=== PATIENT | male | born 1950 | race Caucasian/White ===

== ENCOUNTER → 2023-11-22 13:57 | Outpatient (REF) | payer MEDICARE, OTHER, SELFPAY ==
[2023-11-22 15:32] LABS: % Eosinophils 5.5 % (0-6); % Immature Granulocytes 1.3 % (0-0.5); % Lymphocytes 24.1 % (20.5-51.1); % Monocytes 12.8 % (1.7-9.3); % Neutrophils 55.3 % (42.2-75.2); Absolute Eosinophils 0.2 10^3/uL (0-0.7); Absolute Immature Granulocytes 0.1 10^3/uL (0-0.05); Absolute Monocytes 0.5 10^3/uL (0.1-0.6); Absolute Neutrophils 2.2 10^3/uL (1.4-6.5); Hematocrit 32.3 % (39.0-52.0); Hemoglobin 10.9 g/dL (13.0-18.0); Mean Corp Hgb Conc. 33.7 g/dL (33.0-37.0); Mean Corpuscular Hgb 30.2 pg (27.0-31.0); Mean Corpuscular Volume 89.5 fL (80.0-94.0); Mean Platelet Volume 11.5 fL (7.4-10.4); Nucleated Red Blood Cells % 0 % (-); Platelet Count 116 10^3/uL (130-400); Red Blood Cell Count 3.61 10^6/uL (4.70-6.10); Red Cell Dist. Width 17.6 % (11.5-14.5)
[2023-11-22 15:43] LABS: ALT (SGPT) 41 U/L (0-50); AST (SGOT) 39 U/L (17-59); Albumin 3.5 g/dl (3.5-5.0); Alkaline Phosphatase 96 U/L (38-126); Blood Urea Nitrogen 23 mg/dl (9-20); Calcium 8.6 mg/dl (8.4-10.2); Carbon Dioxide 25 mmol/L (22-30); Chloride 99 mmol/L (98-107); Glucose 117 mg/dl (70-99); Potassium 4.2 mmol/L (3.5-5.1); Sodium 133 mmol/L (135-145); Total Bilirubin 0.9 mg/dl (0.2-1.3); Total Protein 6.4 g/dl (6.3-8.2); eGFR > 60.00
== END ==
LOC: REG 13:57
PROVIDERS: ATTENDING PHYSICIAN Internal Medicine Hematology & Oncology
DX: C90.00 Multiple myeloma not having achieved remission (principal); D80.1 Nonfamilial hypogammaglobulinemia; Z51.81 Encounter for therapeutic drug level monitoring; R53.1 Weakness; C90.11 Plasma cell leukemia in remission
CPT/HCPCS: 36415; 71046; 80053; 85025

== ENCOUNTER → 2023-12-13 13:59 | Outpatient (REF) | payer MEDICARE, OTHER, SELFPAY | LOC: HWRAD 13:59 | PROVIDERS: ATTENDING PHYSICIAN Nurse Practitioner Gerontology; FAMILY PHYSICIAN Family Medicine; OTHER PHYSICIAN Internal Medicine Hematology & Oncology | DX: C90.00 Multiple myeloma not having achieved remission (principal) | CPT/HCPCS: 71250 ==

== ENCOUNTER → 2023-12-17 09:10 | Outpatient (REF) | payer MEDICARE, OTHER, SELFPAY ==
[2023-12-17 09:46] LABS: % Basophils 1.6 % (0-2); % Eosinophils 9.5 % (0-6); % Immature Granulocytes 0.8 % (0-0.5); % Lymphocytes 29.6 % (20.5-51.1); % Monocytes 10.3 % (1.7-9.3); % Neutrophils 48.2 % (42.2-75.2); Absolute Eosinophils 0.2 10^3/uL (0-0.7); Absolute Lymphocytes 0.8 10^3/uL (1.2-3.4); Absolute Monocytes 0.3 10^3/uL (0.1-0.6); Absolute Neutrophils 1.2 10^3/uL (1.4-6.5); Hematocrit 30.5 % (39.0-52.0); Hemoglobin 9.7 g/dL (13.0-18.0); Mean Corp Hgb Conc. 31.8 g/dL (33.0-37.0); Mean Corpuscular Hgb 28.4 pg (27.0-31.0); Mean Corpuscular Volume 89.2 fL (80.0-94.0); Platelet Count 77 10^3/uL (130-400); Red Blood Cell Count 3.42 10^6/uL (4.70-6.10); White Blood Cell Count 2.5 10^3/uL (4.8-10.8)
[2023-12-17 10:47] LABS: ALT (SGPT) 43 U/L (0-50); AST (SGOT) 31 U/L (17-59); Alkaline Phosphatase 128 U/L (38-126); Blood Urea Nitrogen 13 mg/dl (9-20); Calcium 8.6 mg/dl (8.4-10.2); Carbon Dioxide 29 mmol/L (22-30); Chloride 102 mmol/L (98-107); Glucose 129 mg/dl (70-99); Potassium 4.3 mmol/L (3.5-5.1); Sodium 134 mmol/L (135-145); Total Bilirubin 1.3 mg/dl (0.2-1.3); Total Protein 5.3 g/dl (6.3-8.2); eGFR > 60.00
[2023-12-19 03:38] LABS: Beta-2-Microglobulin 4.2 mg/L (<=3.0)
[2023-12-20 13:36] LABS: Albumin 2.85 g/dL (3.75-5.01); Alpha 1 Globulin 0.47 g/dL (0.19-0.46); Alpha 2 Globulin 0.97 g/dL (0.48-1.05); Free Kappa Light Chains,Quant 244.75 mg/L (3.30-19.40); Free Lambda Light Chains,Quant 14.51 mg/L (5.71-26.30); IgA 6 mg/dL (68-408); IgG 422 mg/dL (768-1632); IgM 236 mg/dL (35-263); Immunofixation Electrophoresis IFE Done; Kappa/Lambda Fr Light Ratio 16.87 (0.26-1.65); Total Protein-Electrophoresis 5.4 g/dL (6.3-8.2)
== END ==
LOC: OIDL 09:10
PROVIDERS: ATTENDING PHYSICIAN Internal Medicine Hematology & Oncology
DX: C90.00 Multiple myeloma not having achieved remission (principal)
CPT/HCPCS: 36415; 80053; 82232; 82784; 83521; 84155; 84165; 85025; 86334

== ENCOUNTER → 2023-12-26 07:48 | Outpatient (REF) | payer MEDICARE, OTHER, SELFPAY ==
[2023-12-26 08:53] LABS: % Basophils 0.2 % (0-2); % Immature Granulocytes 0.4 % (0-0.5); % Lymphocytes 18.3 % (20.5-51.1); % Monocytes 11.3 % (1.7-9.3); % Neutrophils 69.8 % (42.2-75.2); Absolute Lymphocytes 0.8 10^3/uL (1.2-3.4); Absolute Monocytes 0.5 10^3/uL (0.1-0.6); Absolute Neutrophils 3.2 10^3/uL (1.4-6.5); Hematocrit 29.3 % (39.0-52.0); Hemoglobin 9.5 g/dL (13.0-18.0); Mean Corp Hgb Conc. 32.4 g/dL (33.0-37.0); Mean Corpuscular Hgb 29.7 pg (27.0-31.0); Mean Corpuscular Volume 91.6 fL (80.0-94.0); Mean Platelet Volume 11.1 fL (7.4-10.4); Platelet Count 85 10^3/uL (130-400); Red Cell Dist. Width 24.4 % (11.5-14.5); White Blood Cell Count 4.6 10^3/uL (4.8-10.8)
[2023-12-26 09:31] LABS: ALT (SGPT) 44 U/L (0-50); AST (SGOT) 23 U/L (17-59); Albumin 3.6 g/dl (3.5-5.0); Alkaline Phosphatase 99 U/L (38-126); Blood Urea Nitrogen 18 mg/dl (9-20); Calcium 8.5 mg/dl (8.4-10.2); Carbon Dioxide 23 mmol/L (22-30); Chloride 101 mmol/L (98-107); Glucose 108 mg/dl (70-99); Potassium 4.8 mmol/L (3.5-5.1); Sodium 133 mmol/L (135-145); Total Bilirubin 0.6 mg/dl (0.2-1.3); Total Protein 5.9 g/dl (6.3-8.2); eGFR > 60.00
[2023-12-29 13:26] LABS: Albumin 3.35 g/dL (3.75-5.01); Alpha 1 Globulin 0.36 g/dL (0.19-0.46); Alpha 2 Globulin 0.87 g/dL (0.48-1.05); Free Kappa Light Chains,Quant 250.14 mg/L (3.30-19.40); Free Lambda Light Chains,Quant 4.72 mg/L (5.71-26.30); IgA 7 mg/dL (68-408); IgG 474 mg/dL (768-1632); IgM 285 mg/dL (35-263); Immunofixation Electrophoresis IFE Done; Total Protein-Electrophoresis 5.7 g/dL (6.3-8.2)
== END ==
LOC: OIDL 07:48
PROVIDERS: ATTENDING PHYSICIAN Internal Medicine Hematology & Oncology; FAMILY PHYSICIAN Family Medicine
DX: C90.00 Multiple myeloma not having achieved remission (principal)
CPT/HCPCS: 36415; 80053; 82784; 83521; 84155; 84165; 85025; 86334

== ENCOUNTER → 2024-01-02 07:38 | Outpatient (REF) | payer MEDICARE, OTHER, SELFPAY ==
[2024-01-02 08:22] LABS: % Basophils 0.3 % (0-2); % Eosinophils 0.9 % (0-6); % Immature Granulocytes 1.2 % (0-0.5); % Lymphocytes 20.5 % (20.5-51.1); % Monocytes 10.2 % (1.7-9.3); % Neutrophils 66.9 % (42.2-75.2); Absolute Lymphocytes 0.7 10^3/uL (1.2-3.4); Absolute Monocytes 0.4 10^3/uL (0.1-0.6); Absolute Neutrophils 2.3 10^3/uL (1.4-6.5); Hematocrit 30.1 % (39.0-52.0); Mean Corp Hgb Conc. 33.2 g/dL (33.0-37.0); Mean Corpuscular Hgb 31.1 pg (27.0-31.0); Mean Corpuscular Volume 93.5 fL (80.0-94.0); Mean Platelet Volume 9.9 fL (7.4-10.4); Platelet Count 89 10^3/uL (130-400); Red Blood Cell Count 3.22 10^6/uL (4.70-6.10); Red Cell Dist. Width 27.7 % (11.5-14.5); White Blood Cell Count 3.4 10^3/uL (4.8-10.8)
[2024-01-02 09:05] LABS: ALT (SGPT) 37 U/L (0-50); AST (SGOT) 20 U/L (17-59); Albumin 3.5 g/dl (3.5-5.0); Alkaline Phosphatase 93 U/L (38-126); Blood Urea Nitrogen 18 mg/dl (9-20); Calcium 8.5 mg/dl (8.4-10.2); Carbon Dioxide 24 mmol/L (22-30); Chloride 98 mmol/L (98-107); Glucose 93 mg/dl (70-99); Potassium 4.6 mmol/L (3.5-5.1); Sodium 127 mmol/L (135-145); Total Bilirubin 0.6 mg/dl (0.2-1.3); Total Protein 5.7 g/dl (6.3-8.2); eGFR > 60.00
== END ==
LOC: OIDL 07:38
PROVIDERS: Internal Medicine Hematology & Oncology; ATTENDING PHYSICIAN Internal Medicine Hematology & Oncology
DX: C90.00 Multiple myeloma not having achieved remission (principal); D80.1 Nonfamilial hypogammaglobulinemia; Z51.81 Encounter for therapeutic drug level monitoring; I10 Essential (primary) hypertension
CPT/HCPCS: 36415; 80053; 85025

== ENCOUNTER → 2024-01-03 10:26 | Outpatient (REF) | payer MEDICARE, OTHER, SELFPAY ==
[2024-01-03 12:08] LABS: Free T3 2.76 pg/ml (2.77-5.27); Free T4 0.92 ng/dl (0.78-2.19)
[2024-01-03 12:22] LABS: TSH 8.61 uIU/ml (0.47-4.68)
[2024-01-04 09:56] LABS: Thyroid Peroxidase Ab (TPO) 2.6 IU/mL (0.0-9.0)
[2024-01-04 10:13] LABS: Thyroglobulin 6.4 ng/mL (1.3-31.8); Thyroglobulin Antibodies 1.1 IU/mL (0.0-4.0)
== END ==
LOC: REG 10:26
PROVIDERS: ATTENDING PHYSICIAN Nurse Practitioner Family; FAMILY PHYSICIAN Family Medicine
DX: E06.3 Autoimmune thyroiditis (principal)
CPT/HCPCS: 36415; 84432; 84439; 84443; 84481; 86376; 86800

== ENCOUNTER → 2024-01-09 07:40 | Outpatient (REF) | payer MEDICARE, OTHER, SELFPAY ==
[2024-01-09 08:36] LABS: % Basophils 0.4 % (0-2); % Eosinophils 1.1 % (0-6); % Immature Granulocytes 0.8 % (0-0.5); % Lymphocytes 28.9 % (20.5-51.1); % Monocytes 8.4 % (1.7-9.3); % Neutrophils 60.4 % (42.2-75.2); Absolute Lymphocytes 0.8 10^3/uL (1.2-3.4); Absolute Monocytes 0.2 10^3/uL (0.1-0.6); Absolute Neutrophils 1.6 10^3/uL (1.4-6.5); Hematocrit 29.4 % (39.0-52.0); Hemoglobin 9.7 g/dL (13.0-18.0); Mean Platelet Volume 9.9 fL (7.4-10.4); Platelet Count 67 10^3/uL (130-400); Red Blood Cell Count 3.03 10^6/uL (4.70-6.10); Red Cell Dist. Width 29.8 % (11.5-14.5); White Blood Cell Count 2.6 10^3/uL (4.8-10.8)
[2024-01-09 10:01] LABS: ALT (SGPT) 40 U/L (0-50); AST (SGOT) 25 U/L (17-59); Albumin 3.6 g/dl (3.5-5.0); Alkaline Phosphatase 83 U/L (38-126); Blood Urea Nitrogen 15 mg/dl (9-20); Carbon Dioxide 21 mmol/L (22-30); Chloride 100 mmol/L (98-107); Glucose 103 mg/dl (70-99); Potassium 4.7 mmol/L (3.5-5.1); Sodium 128 mmol/L (135-145); Total Bilirubin 0.5 mg/dl (0.2-1.3); Total Protein 5.6 g/dl (6.3-8.2); eGFR > 60.00
== END ==
LOC: OIDL 07:40
PROVIDERS: ATTENDING PHYSICIAN Internal Medicine Hematology & Oncology
DX: C90.00 Multiple myeloma not having achieved remission (principal); D80.1 Nonfamilial hypogammaglobulinemia; Z51.81 Encounter for therapeutic drug level monitoring; I10 Essential (primary) hypertension
CPT/HCPCS: 80053; 85025

== ENCOUNTER → 2024-01-15 07:46 | Outpatient (REF) | payer MEDICARE, OTHER, SELFPAY ==
[2024-01-15 08:08] LABS: % Basophils 1.3 % (0-2); % Eosinophils 2.6 % (0-6); % Immature Granulocytes 1.3 % (0-0.5); % Lymphocytes 38.5 % (20.5-51.1); % Monocytes 11.7 % (1.7-9.3); % Neutrophils 44.6 % (42.2-75.2); Absolute Eosinophils 0.1 10^3/uL (0-0.7); Absolute Lymphocytes 0.9 10^3/uL (1.2-3.4); Absolute Monocytes 0.3 10^3/uL (0.1-0.6); Hematocrit 30.9 % (39.0-52.0); Hemoglobin 10.4 g/dL (13.0-18.0); Mean Corp Hgb Conc. 33.7 g/dL (33.0-37.0); Mean Corpuscular Hgb 33.8 pg (27.0-31.0); Mean Corpuscular Volume 100.3 fL (80.0-94.0); Red Blood Cell Count 3.08 10^6/uL (4.70-6.10); Red Cell Dist. Width 30.3 % (11.5-14.5); White Blood Cell Count 2.3 10^3/uL (4.8-10.8)
[2024-01-15 08:13] LABS: Mean Platelet Volume 9.6 fL (7.4-10.4); Platelet Count 48 10^3/uL (130-400)
[2024-01-15 09:26] LABS: ALT (SGPT) 36 U/L (0-50); AST (SGOT) 21 U/L (17-59); Albumin 3.9 g/dl (3.5-5.0); Alkaline Phosphatase 80 U/L (38-126); Blood Urea Nitrogen 20 mg/dl (9-20); Calcium 9.2 mg/dl (8.4-10.2); Carbon Dioxide 25 mmol/L (22-30); Chloride 97 mmol/L (98-107); Glucose 128 mg/dl (70-99); Sodium 131 mmol/L (135-145); Total Bilirubin 0.7 mg/dl (0.2-1.3); Total Protein 5.9 g/dl (6.3-8.2); eGFR > 60.00
[2024-01-15 09:35] LABS: Potassium 4.6 mmol/L (3.5-5.1)
[2024-01-18 18:04] LABS: Albumin 3.74 g/dL (3.75-5.01); Alpha 2 Globulin 0.73 g/dL (0.48-1.05); Free Kappa Light Chains,Quant 368.06 mg/L (3.30-19.40); Free Lambda Light Chains,Quant 1.74 mg/L (5.71-26.30); IgA 3 mg/dL (68-408); IgG 343 mg/dL (768-1632); IgM 90 mg/dL (35-263); Immunofixation Electrophoresis IFE Done; Kappa/Lambda Fr Light Ratio 211.53 (0.26-1.65); Total Protein-Electrophoresis 5.7 g/dL (6.3-8.2)
== END ==
LOC: OIDL 07:46
PROVIDERS: Internal Medicine Hematology & Oncology; ATTENDING PHYSICIAN Internal Medicine Hematology & Oncology
DX: C90.00 Multiple myeloma not having achieved remission (principal); D80.1 Nonfamilial hypogammaglobulinemia; Z51.81 Encounter for therapeutic drug level monitoring; I10 Essential (primary) hypertension
CPT/HCPCS: 36415; 80053; 82232; 82784; 83521; 84155; 84165; 85025; 86334

== ENCOUNTER → 2024-01-22 08:10 | Outpatient (REF) | payer MEDICARE, OTHER, SELFPAY ==
[2024-01-22 08:27] LABS: % Basophils 1.3 % (0-2); % Eosinophils 2.1 % (0-6); % Immature Granulocytes 0.8 % (0-0.5); % Lymphocytes 48.3 % (20.5-51.1); % Monocytes 15.5 % (1.7-9.3); Absolute Eosinophils 0.1 10^3/uL (0-0.7); Absolute Lymphocytes 1.2 10^3/uL (1.2-3.4); Absolute Monocytes 0.4 10^3/uL (0.1-0.6); Absolute Neutrophils 0.8 10^3/uL (1.4-6.5); Hematocrit 28.5 % (39.0-52.0); Hemoglobin 9.5 g/dL (13.0-18.0); Mean Corp Hgb Conc. 33.3 g/dL (33.0-37.0); Mean Corpuscular Hgb 34.4 pg (27.0-31.0); Mean Corpuscular Volume 103.3 fL (80.0-94.0); Platelet Count 60 10^3/uL (130-400); Red Blood Cell Count 2.76 10^6/uL (4.70-6.10); White Blood Cell Count 2.4 10^3/uL (4.8-10.8)
[2024-01-22 09:33] LABS: ALT (SGPT) 24 U/L (0-50); AST (SGOT) 21 U/L (17-59); Albumin 3.5 g/dl (3.5-5.0); Alkaline Phosphatase 74 U/L (38-126); Blood Urea Nitrogen 13 mg/dl (9-20); Calcium 8.8 mg/dl (8.4-10.2); Carbon Dioxide 29 mmol/L (22-30); Chloride 100 mmol/L (98-107); Glucose 93 mg/dl (70-99); Potassium 4.4 mmol/L (3.5-5.1); Sodium 135 mmol/L (135-145); Total Bilirubin 0.9 mg/dl (0.2-1.3); Total Protein 5.5 g/dl (6.3-8.2); eGFR > 60.00
== END ==
LOC: OIDL 08:10
PROVIDERS: ATTENDING PHYSICIAN Internal Medicine Hematology & Oncology; FAMILY PHYSICIAN Family Medicine
DX: D80.1 Nonfamilial hypogammaglobulinemia (principal); Z51.81 Encounter for therapeutic drug level monitoring; C90.00 Multiple myeloma not having achieved remission
CPT/HCPCS: 36415; 80053; 85025

== ENCOUNTER → 2024-02-05 08:10 | Outpatient (REF) | payer MEDICARE, OTHER, SELFPAY ==
[2024-02-05 08:28] LABS: Hematocrit 28.8 % (39.0-52.0); Hemoglobin 9.8 g/dL (13.0-18.0); Mean Corpuscular Hgb 35.1 pg (27.0-31.0); Mean Corpuscular Volume 103.2 fL (80.0-94.0); Mean Platelet Volume 10.6 fL (7.4-10.4); Red Blood Cell Count 2.79 10^6/uL (4.70-6.10); Red Cell Dist. Width 25.2 % (11.5-14.5)
[2024-02-05 09:02] LABS: % Basophils 0.7 % (0-2); % Eosinophils 4.3 % (0-6); % Lymphocytes 35.5 % (20.5-51.1); % Monocytes 9.9 % (1.7-9.3); % Neutrophils 44.6 % (42.2-75.2); Absolute Eosinophils 0.1 10^3/uL (0-0.7); Absolute Immature Granulocytes 0.1 10^3/uL (0-0.05); Absolute Lymphocytes 0.5 10^3/uL (1.2-3.4); Absolute Monocytes 0.1 10^3/uL (0.1-0.6); Absolute Neutrophils 0.6 10^3/uL (1.4-6.5); Nucleated Red Blood Cells % 6.4 % (-); White Blood Cell Count 1.4 10^3/uL (4.8-10.8)
[2024-02-05 09:13] LABS: ALT (SGPT) 28 U/L (0-50); AST (SGOT) 23 U/L (17-59); Albumin 3.1 g/dl (3.5-5.0); Alkaline Phosphatase 117 U/L (38-126); Blood Urea Nitrogen 17 mg/dl (9-20); Calcium 8.5 mg/dl (8.4-10.2); Carbon Dioxide 23 mmol/L (22-30); Chloride 103 mmol/L (98-107); Glucose 102 mg/dl (70-99); Magnesium 2.2 mg/dl (1.6-2.3); Potassium 4.1 mmol/L (3.5-5.1); Sodium 131 mmol/L (135-145); Total Bilirubin 0.7 mg/dl (0.2-1.3); Total Protein 5.5 g/dl (6.3-8.2); eGFR > 60.00
[2024-02-05 09:25] LABS: Platelet Count 110 10^3/uL (130-400)
== END ==
LOC: OIDL 08:10
PROVIDERS: ATTENDING PHYSICIAN Internal Medicine
DX: C90.00 Multiple myeloma not having achieved remission (principal)
CPT/HCPCS: 36415; 80053; 83735; 85025

== ENCOUNTER → 2024-02-13 08:11 | Outpatient (REF) | payer MEDICARE, OTHER, SELFPAY ==
[2024-02-13 08:21] LABS: % Basophils 2.3 % (0-2); % Immature Granulocytes 0.3 % (0-0.5); % Lymphocytes 38.7 % (20.5-51.1); % Monocytes 10.5 % (1.7-9.3); % Neutrophils 46.2 % (42.2-75.2); Absolute Basophils 0.1 10^3/uL (0-0.2); Absolute Eosinophils 0.1 10^3/uL (0-0.7); Absolute Lymphocytes 1.4 10^3/uL (1.2-3.4); Absolute Monocytes 0.4 10^3/uL (0.1-0.6); Absolute Neutrophils 1.6 10^3/uL (1.4-6.5); Hematocrit 33.6 % (39.0-52.0); Mean Corp Hgb Conc. 32.7 g/dL (33.0-37.0); Mean Corpuscular Hgb 35.4 pg (27.0-31.0); Platelet Count 77 10^3/uL (130-400); Red Blood Cell Count 3.11 10^6/uL (4.70-6.10); Red Cell Dist. Width 23.9 % (11.5-14.5); White Blood Cell Count 3.5 10^3/uL (4.8-10.8)
[2024-02-13 09:25] LABS: ALT (SGPT) 52 U/L (0-50); AST (SGOT) 28 U/L (17-59); Albumin 3.6 g/dl (3.5-5.0); Alkaline Phosphatase 65 U/L (38-126); Blood Urea Nitrogen 15 mg/dl (9-20); Carbon Dioxide 26 mmol/L (22-30); Chloride 106 mmol/L (98-107); Glucose 91 mg/dl (70-99); Potassium 4.2 mmol/L (3.5-5.1); Sodium 136 mmol/L (135-145); Total Bilirubin 1.1 mg/dl (0.2-1.3); Total Protein 5.7 g/dl (6.3-8.2); eGFR > 60.00
== END ==
LOC: OIDL 08:11
PROVIDERS: Internal Medicine Hematology & Oncology; ATTENDING PHYSICIAN Nurse Practitioner Acute Care
DX: C90.00 Multiple myeloma not having achieved remission (principal)
CPT/HCPCS: 36415; 80053; 85025

== ENCOUNTER → 2024-03-05 12:29 | Outpatient (REF) | payer MEDICARE, OTHER, SELFPAY ==
[2024-03-05 13:24] LABS: % Basophils 1.5 % (0-2); % Eosinophils 1.8 % (0-6); % Immature Granulocytes 1.2 % (0-0.5); % Lymphocytes 55.3 % (20.5-51.1); % Neutrophils 25.2 % (42.2-75.2); Absolute Basophils 0.1 10^3/uL (0-0.2); Absolute Eosinophils 0.1 10^3/uL (0-0.7); Absolute Lymphocytes 1.9 10^3/uL (1.2-3.4); Absolute Monocytes 0.5 10^3/uL (0.1-0.6); Hematocrit 35.9 % (39.0-52.0); Hemoglobin 12.1 g/dL (13.0-18.0); Mean Corp Hgb Conc. 33.7 g/dL (33.0-37.0); Mean Corpuscular Hgb 36.7 pg (27.0-31.0); Mean Corpuscular Volume 108.8 fL (80.0-94.0); Platelet Count 75 10^3/uL (130-400); Red Cell Dist. Width 18.8 % (11.5-14.5); White Blood Cell Count 3.4 10^3/uL (4.8-10.8)
[2024-03-05 13:25] LABS: Absolute Neutrophils 0.9 10^3/uL (1.4-6.5)
[2024-03-05 13:59] LABS: ALT (SGPT) 16 U/L (0-50); AST (SGOT) 21 U/L (17-59); Albumin 3.7 g/dl (3.5-5.0); Alkaline Phosphatase 50 U/L (38-126); Blood Urea Nitrogen 12 mg/dl (9-20); Calcium 8.7 mg/dl (8.4-10.2); Carbon Dioxide 24 mmol/L (22-30); Chloride 106 mmol/L (98-107); Glucose 98 mg/dl (70-99); Potassium 4.3 mmol/L (3.5-5.1); Sodium 138 mmol/L (135-145); Total Bilirubin 1.9 mg/dl (0.2-1.3); Total Protein 5.6 g/dl (6.3-8.2); eGFR > 60.00
== END ==
LOC: OIDL 12:29
PROVIDERS: Internal Medicine Hematology & Oncology; ATTENDING PHYSICIAN Internal Medicine Hematology & Oncology
DX: C90.00 Multiple myeloma not having achieved remission (principal); D80.1 Nonfamilial hypogammaglobulinemia; Z51.81 Encounter for therapeutic drug level monitoring; I10 Essential (primary) hypertension
CPT/HCPCS: 80053; 85025

== ENCOUNTER → 2024-03-10 07:56 | Outpatient (REF) | payer MEDICARE, OTHER, SELFPAY ==
[2024-03-10 08:29] LABS: % Basophils 2.4 % (0-2); % Eosinophils 2.4 % (0-6); % Immature Granulocytes 0.3 % (0-0.5); % Lymphocytes 33.6 % (20.5-51.1); % Neutrophils 47.3 % (42.2-75.2); Absolute Basophils 0.1 10^3/uL (0-0.2); Absolute Eosinophils 0.1 10^3/uL (0-0.7); Absolute Monocytes 0.4 10^3/uL (0.1-0.6); Absolute Neutrophils 1.4 10^3/uL (1.4-6.5); Hematocrit 37.3 % (39.0-52.0); Hemoglobin 12.7 g/dL (13.0-18.0); Mean Corpuscular Volume 108.7 fL (80.0-94.0); Platelet Count 93 10^3/uL (130-400); Red Blood Cell Count 3.43 10^6/uL (4.70-6.10); White Blood Cell Count 2.9 10^3/uL (4.8-10.8)
[2024-03-10 12:18] LABS: ALT (SGPT) 16 U/L (0-50); AST (SGOT) 20 U/L (17-59); Albumin 3.6 g/dl (3.5-5.0); Alkaline Phosphatase 54 U/L (38-126); Blood Urea Nitrogen 15 mg/dl (9-20); Calcium 8.7 mg/dl (8.4-10.2); Carbon Dioxide 24 mmol/L (22-30); Chloride 109 mmol/L (98-107); Glucose 117 mg/dl (70-99); Potassium 4.2 mmol/L (3.5-5.1); Sodium 139 mmol/L (135-145); Total Bilirubin 1.7 mg/dl (0.2-1.3); Total Protein 5.6 g/dl (6.3-8.2); eGFR > 60.00
== END ==
LOC: OIDL 07:56
PROVIDERS: ATTENDING PHYSICIAN Internal Medicine Hematology & Oncology; FAMILY PHYSICIAN Internal Medicine Hematology & Oncology
DX: C90.00 Multiple myeloma not having achieved remission (principal); D80.1 Nonfamilial hypogammaglobulinemia; Z51.81 Encounter for therapeutic drug level monitoring; I10 Essential (primary) hypertension
CPT/HCPCS: 36415; 80053; 85025

== ENCOUNTER → 2024-03-14 08:15 | Outpatient (REF) | payer MEDICARE, OTHER, SELFPAY | LOC: RAD 08:15 | PROVIDERS: ATTENDING PHYSICIAN Internal Medicine Pulmonary Disease; FAMILY PHYSICIAN Family Medicine | DX: C90.00 Multiple myeloma not having achieved remission (principal); B59 Pneumocystosis | CPT/HCPCS: 71250 ==

== ENCOUNTER → 2024-03-17 07:45 | Outpatient (REF) | payer MEDICARE, OTHER, SELFPAY ==
[2024-03-17 08:36] LABS: % Basophils 2.7 % (0-2); % Immature Granulocytes 1.1 % (0-0.5); % Lymphocytes 42.6 % (20.5-51.1); % Monocytes 14.1 % (1.7-9.3); % Neutrophils 36.5 % (42.2-75.2); Absolute Basophils 0.1 10^3/uL (0-0.2); Absolute Eosinophils 0.1 10^3/uL (0-0.7); Absolute Lymphocytes 1.1 10^3/uL (1.2-3.4); Absolute Monocytes 0.4 10^3/uL (0.1-0.6); Hematocrit 38.1 % (39.0-52.0); Hemoglobin 13.1 g/dL (13.0-18.0); Mean Corp Hgb Conc. 34.4 g/dL (33.0-37.0); Mean Corpuscular Hgb 37.2 pg (27.0-31.0); Mean Corpuscular Volume 108.2 fL (80.0-94.0); Mean Platelet Volume 13.7 fL (7.4-10.4); Platelet Count 96 10^3/uL (130-400); Red Blood Cell Count 3.52 10^6/uL (4.70-6.10); White Blood Cell Count 2.6 10^3/uL (4.8-10.8)
[2024-03-17 09:58] LABS: ALT (SGPT) 17 U/L (0-50); AST (SGOT) 21 U/L (17-59); Albumin 3.7 g/dl (3.5-5.0); Alkaline Phosphatase 45 U/L (38-126); Blood Urea Nitrogen 13 mg/dl (9-20); Calcium 8.9 mg/dl (8.4-10.2); Carbon Dioxide 27 mmol/L (22-30); Chloride 106 mmol/L (98-107); Glucose 108 mg/dl (70-99); HDL Cholesterol 42 mg/dl; LDL Cholesterol, Calculated 167 mg/dl; Potassium 4.6 mmol/L (3.5-5.1); Sodium 139 mmol/L (135-145); Total Bilirubin 2.1 mg/dl (0.2-1.3); Total Cholesterol 234 mg/dl (50-199); Total Protein 5.7 g/dl (6.3-8.2); Triglyceride 126 mg/dl (10-149); Very Low Density Lipoprotein 25 mg/dl (0-30); eGFR > 60.00
== END ==
LOC: OIDL 07:45
PROVIDERS: ATTENDING PHYSICIAN Internal Medicine Hematology & Oncology
DX: C90.00 Multiple myeloma not having achieved remission (principal); D80.1 Nonfamilial hypogammaglobulinemia; Z51.81 Encounter for therapeutic drug level monitoring; I10 Essential (primary) hypertension; E78.00 Pure hypercholesterolemia, unspecified
CPT/HCPCS: 36415; 80053; 80061; 82784; 83521; 84155; 84165; 85025; 86334

== ENCOUNTER → 2024-03-23 10:13 | Outpatient (REF) | payer MEDICARE, OTHER, SELFPAY ==
[2024-03-23 11:16] LABS: % Eosinophils 1.8 % (0-6); % Immature Granulocytes 5.4 % (0-0.5); % Lymphocytes 25.2 % (20.5-51.1); % Monocytes 13.8 % (1.7-9.3); % Neutrophils 52.8 % (42.2-75.2); Absolute Basophils 0.1 10^3/uL (0-0.2); Absolute Eosinophils 0.1 10^3/uL (0-0.7); Absolute Immature Granulocytes 0.4 10^3/uL (0-0.05); Absolute Lymphocytes 1.7 10^3/uL (1.2-3.4); Absolute Monocytes 0.9 10^3/uL (0.1-0.6); Absolute Neutrophils 3.5 10^3/uL (1.4-6.5); Hematocrit 37.5 % (39.0-52.0); Hemoglobin 12.9 g/dL (13.0-18.0); Mean Corp Hgb Conc. 34.4 g/dL (33.0-37.0); Mean Corpuscular Hgb 36.8 pg (27.0-31.0); Mean Corpuscular Volume 106.8 fL (80.0-94.0); Nucleated Red Blood Cells % 0 % (-); Platelet Count 85 10^3/uL (130-400); Red Blood Cell Count 3.51 10^6/uL (4.70-6.10); Red Cell Dist. Width 16.9 % (11.5-14.5); White Blood Cell Count 6.7 10^3/uL (4.8-10.8)
[2024-03-23 12:43] LABS: ALT (SGPT) 14 U/L (0-50); AST (SGOT) 18 U/L (17-59); Albumin 3.8 g/dl (3.5-5.0); Alkaline Phosphatase 50 U/L (38-126); Blood Urea Nitrogen 13 mg/dl (9-20); Calcium 9.1 mg/dl (8.4-10.2); Carbon Dioxide 25 mmol/L (22-30); Chloride 105 mmol/L (98-107); Glucose 91 mg/dl (70-99); Potassium 4.2 mmol/L (3.5-5.1); Sodium 138 mmol/L (135-145); Total Bilirubin 2.2 mg/dl (0.2-1.3); Total Protein 5.8 g/dl (6.3-8.2); eGFR > 60.00
== END ==
LOC: REG 10:13
PROVIDERS: ATTENDING PHYSICIAN Internal Medicine Hematology & Oncology
DX: C90.00 Multiple myeloma not having achieved remission (principal); D80.1 Nonfamilial hypogammaglobulinemia; Z51.81 Encounter for therapeutic drug level monitoring; R53.1 Weakness; C90.11 Plasma cell leukemia in remission
CPT/HCPCS: 36415; 80053; 85025

== ENCOUNTER → 2024-03-31 08:10 | Outpatient (REF) | payer MEDICARE, OTHER, SELFPAY ==
[2024-03-31 09:30] LABS: % Basophils 1.9 % (0-2); % Eosinophils 2.5 % (0-6); % Immature Granulocytes 2.5 % (0-0.5); % Lymphocytes 31.7 % (20.5-51.1); % Monocytes 9.7 % (1.7-9.3); % Neutrophils 51.7 % (42.2-75.2); Absolute Basophils 0.1 10^3/uL (0-0.2); Absolute Eosinophils 0.1 10^3/uL (0-0.7); Absolute Immature Granulocytes 0.1 10^3/uL (0-0.05); Absolute Monocytes 0.3 10^3/uL (0.1-0.6); Absolute Neutrophils 1.7 10^3/uL (1.4-6.5); Hematocrit 37.3 % (39.0-52.0); Hemoglobin 12.9 g/dL (13.0-18.0); Mean Corp Hgb Conc. 34.6 g/dL (33.0-37.0); Mean Corpuscular Hgb 36.3 pg (27.0-31.0); Mean Corpuscular Volume 105.1 fL (80.0-94.0); Platelet Count 95 10^3/uL (130-400); Red Blood Cell Count 3.55 10^6/uL (4.70-6.10); Red Cell Dist. Width 15.9 % (11.5-14.5); White Blood Cell Count 3.2 10^3/uL (4.8-10.8)
[2024-03-31 10:30] LABS: ALT (SGPT) 15 U/L (0-50); AST (SGOT) 18 U/L (17-59); Albumin 3.5 g/dl (3.5-5.0); Alkaline Phosphatase 66 U/L (38-126); Blood Urea Nitrogen 13 mg/dl (9-20); Calcium 8.8 mg/dl (8.4-10.2); Carbon Dioxide 24 mmol/L (22-30); Chloride 107 mmol/L (98-107); Glucose 122 mg/dl (70-99); Potassium 4.2 mmol/L (3.5-5.1); Sodium 138 mmol/L (135-145); Total Bilirubin 1.6 mg/dl (0.2-1.3); Total Protein 5.5 g/dl (6.3-8.2); eGFR > 60.00
== END ==
LOC: OIDL 08:10
PROVIDERS: ATTENDING PHYSICIAN Internal Medicine Hematology & Oncology
DX: C90.00 Multiple myeloma not having achieved remission (principal); D80.1 Nonfamilial hypogammaglobulinemia; Z51.81 Encounter for therapeutic drug level monitoring; I10 Essential (primary) hypertension
CPT/HCPCS: 36415; 80053; 85025

== ENCOUNTER → 2024-04-07 08:04 | Outpatient (REF) | payer MEDICARE, OTHER, SELFPAY ==
[2024-04-07 08:48] LABS: % Basophils 1.6 % (0-2); % Eosinophils 2.4 % (0-6); % Immature Granulocytes 1.6 % (0-0.5); % Lymphocytes 40.4 % (20.5-51.1); % Monocytes 14.3 % (1.7-9.3); % Neutrophils 39.7 % (42.2-75.2); Absolute Eosinophils 0.1 10^3/uL (0-0.7); Absolute Monocytes 0.4 10^3/uL (0.1-0.6); Hematocrit 37.8 % (39.0-52.0); Hemoglobin 13.1 g/dL (13.0-18.0); Mean Corp Hgb Conc. 34.7 g/dL (33.0-37.0); Mean Corpuscular Hgb 35.8 pg (27.0-31.0); Mean Corpuscular Volume 103.3 fL (80.0-94.0); Mean Platelet Volume 12.5 fL (7.4-10.4); Platelet Count 100 10^3/uL (130-400); Red Blood Cell Count 3.66 10^6/uL (4.70-6.10); Red Cell Dist. Width 15.6 % (11.5-14.5); White Blood Cell Count 2.5 10^3/uL (4.8-10.8)
[2024-04-07 09:41] LABS: ALT (SGPT) 15 U/L (0-50); AST (SGOT) 19 U/L (17-59); Albumin 3.9 g/dl (3.5-5.0); Alkaline Phosphatase 67 U/L (38-126); Blood Urea Nitrogen 16 mg/dl (9-20); Calcium 8.9 mg/dl (8.4-10.2); Carbon Dioxide 25 mmol/L (22-30); Chloride 106 mmol/L (98-107); Glucose 105 mg/dl (70-99); Potassium 4.3 mmol/L (3.5-5.1); Sodium 138 mmol/L (135-145); Total Bilirubin 1.7 mg/dl (0.2-1.3); Total Protein 5.7 g/dl (6.3-8.2); eGFR > 60.00
[2024-04-08 16:43] LABS: Beta-2-Microglobulin 2.8 mg/L (<=3.0)
[2024-04-10 01:51] LABS: Albumin 3.68 g/dL (3.75-5.01); Alpha 1 Globulin 0.24 g/dL (0.19-0.46); Alpha 2 Globulin 0.78 g/dL (0.48-1.05); Free Kappa Light Chains,Quant <0.60 mg/L (3.30-19.40); Free Lambda Light Chains,Quant <1.37 mg/L (5.71-26.30); IgA <2 mg/dL (68-408); IgG 284 mg/dL (768-1632); IgM <10 mg/dL (35-263); Immunofixation Electrophoresis IFE Done; Total Protein-Electrophoresis 5.6 g/dL (6.3-8.2)
== END ==
LOC: OIDL 08:04
PROVIDERS: ATTENDING PHYSICIAN Internal Medicine Hematology & Oncology
DX: C90.00 Multiple myeloma not having achieved remission (principal); D80.1 Nonfamilial hypogammaglobulinemia; Z51.81 Encounter for therapeutic drug level monitoring; I10 Essential (primary) hypertension
CPT/HCPCS: 36415; 80053; 82232; 82784; 83521; 84155; 84165; 85025; 86334

== ENCOUNTER → 2024-04-20 08:21 | Outpatient (REF) | payer MEDICARE, OTHER, SELFPAY ==
[2024-04-20 09:22] LABS: % Basophils 1.8 % (0-2); % Eosinophils 2.9 % (0-6); % Immature Granulocytes 1.8 % (0-0.5); % Lymphocytes 42.8 % (20.5-51.1); % Monocytes 10.5 % (1.7-9.3); % Neutrophils 40.2 % (42.2-75.2); Absolute Basophils 0.1 10^3/uL (0-0.2); Absolute Eosinophils 0.1 10^3/uL (0-0.7); Absolute Immature Granulocytes 0.1 10^3/uL (0-0.05); Absolute Lymphocytes 1.2 10^3/uL (1.2-3.4); Absolute Monocytes 0.3 10^3/uL (0.1-0.6); Absolute Neutrophils 1.1 10^3/uL (1.4-6.5); Hemoglobin 12.6 g/dL (13.0-18.0); Mean Corpuscular Hgb 34.8 pg (27.0-31.0); Mean Corpuscular Volume 99.4 fL (80.0-94.0); Mean Platelet Volume 13.5 fL (7.4-10.4); Nucleated Red Blood Cells % 0 % (-); Platelet Count 91 10^3/uL (130-400); Red Blood Cell Count 3.62 10^6/uL (4.70-6.10); Red Cell Dist. Width 15.5 % (11.5-14.5); White Blood Cell Count 2.8 10^3/uL (4.8-10.8)
[2024-04-20 09:38] LABS: ALT (SGPT) 13 U/L (0-50); AST (SGOT) 16 U/L (17-59); Albumin 3.5 g/dl (3.5-5.0); Alkaline Phosphatase 80 U/L (38-126); Blood Urea Nitrogen 14 mg/dl (9-20); Carbon Dioxide 23 mmol/L (22-30); Chloride 106 mmol/L (98-107); Glucose 110 mg/dl (70-99); Potassium 4.2 mmol/L (3.5-5.1); Sodium 137 mmol/L (135-145); Total Bilirubin 1.2 mg/dl (0.2-1.3); Total Protein 5.4 g/dl (6.3-8.2); eGFR > 60.00
== END ==
LOC: OIDL 08:21
PROVIDERS: ATTENDING PHYSICIAN Internal Medicine Hematology & Oncology
DX: C90.00 Multiple myeloma not having achieved remission (principal); D80.1 Nonfamilial hypogammaglobulinemia; Z51.81 Encounter for therapeutic drug level monitoring; I10 Essential (primary) hypertension
CPT/HCPCS: 80053; 85025

== ENCOUNTER → 2024-05-05 08:15 | Outpatient (REF) | payer MEDICARE, OTHER, SELFPAY ==
[2024-05-05 08:52] LABS: % Basophils 2.1 % (0-2); % Eosinophils 2.6 % (0-6); % Immature Granulocytes 1.6 % (0-0.5); % Lymphocytes 62.3 % (20.5-51.1); % Monocytes 13.6 % (1.7-9.3); % Neutrophils 17.8 % (42.2-75.2); Absolute Eosinophils 0.1 10^3/uL (0-0.7); Absolute Lymphocytes 1.2 10^3/uL (1.2-3.4); Absolute Monocytes 0.3 10^3/uL (0.1-0.6); Absolute Neutrophils 0.3 10^3/uL (1.4-6.5); Hematocrit 36.1 % (39.0-52.0); Hemoglobin 12.6 g/dL (13.0-18.0); Mean Corp Hgb Conc. 34.9 g/dL (33.0-37.0); Mean Corpuscular Hgb 34.7 pg (27.0-31.0); Mean Corpuscular Volume 99.4 fL (80.0-94.0); Mean Platelet Volume 12.9 fL (7.4-10.4); Platelet Count 86 10^3/uL (130-400); Red Blood Cell Count 3.63 10^6/uL (4.70-6.10); Red Cell Dist. Width 16.6 % (11.5-14.5); White Blood Cell Count 1.9 10^3/uL (4.8-10.8)
[2024-05-05 09:37] LABS: ALT (SGPT) 15 U/L (0-50); AST (SGOT) 21 U/L (17-59); Albumin 3.7 g/dl (3.5-5.0); Alkaline Phosphatase 67 U/L (38-126); Blood Urea Nitrogen 13 mg/dl (9-20); Carbon Dioxide 25 mmol/L (22-30); Chloride 107 mmol/L (98-107); Glucose 125 mg/dl (70-99); Potassium 4.1 mmol/L (3.5-5.1); Sodium 137 mmol/L (135-145); Total Bilirubin 1.5 mg/dl (0.2-1.3); Total Protein 5.8 g/dl (6.3-8.2); eGFR > 60.00
[2024-05-05 10:02] LABS: Magnesium 2.1 mg/dl (1.6-2.3)
[2024-05-08 02:23] LABS: Alpha 1 Globulin 0.26 g/dL (0.19-0.46); Alpha 2 Globulin 0.74 g/dL (0.48-1.05); Free Kappa Light Chains,Quant <0.60 mg/L (3.30-19.40); Free Lambda Light Chains,Quant <1.30 mg/L (5.71-26.30); IgA <2 mg/dL (68-408); IgG 610 mg/dL (768-1632); IgM <10 mg/dL (35-263); Immunofixation Electrophoresis IFE Done; Total Protein-Electrophoresis 5.8 g/dL (6.3-8.2)
== END ==
LOC: OIDL 08:15
PROVIDERS: ATTENDING PHYSICIAN Internal Medicine Hematology & Oncology; FAMILY PHYSICIAN Family Medicine
DX: C90.00 Multiple myeloma not having achieved remission (principal); D80.1 Nonfamilial hypogammaglobulinemia; Z51.81 Encounter for therapeutic drug level monitoring; I10 Essential (primary) hypertension
CPT/HCPCS: 36415; 80053; 82784; 83521; 83735; 84155; 84165; 85025; 86334

== ENCOUNTER → 2024-05-07 06:51 | Outpatient (REF) | payer MEDICARE, OTHER, SELFPAY ==
[2024-05-07 07:45] LABS: Hematocrit 35.2 % (39.0-52.0); Hemoglobin 12.1 g/dL (13.0-18.0); Mean Corp Hgb Conc. 34.4 g/dL (33.0-37.0); Mean Corpuscular Volume 98.9 fL (80.0-94.0); Mean Platelet Volume 13.2 fL (7.4-10.4); Nucleated Red Blood Cells % 0 % (-); Platelet Count 74 10^3/uL (130-400); Red Blood Cell Count 3.56 10^6/uL (4.70-6.10); Red Cell Dist. Width 17.4 % (11.5-14.5); White Blood Cell Count 2.5 10^3/uL (4.8-10.8)
[2024-05-07 07:49] LABS: Band Neutrophils 5 % (0-3); Segmented Neutrophils 19 % (42-75)
[2024-05-07 07:50] LABS: Absolute Neutrophils -Man Diff 0.6 10^3/uL (1.4-6.5); Lymphocytes 58 % (20-51); Monocytes 18 % (2-9); Normal RBC Morphology Yes; Platelets Checked Yes; Total Cells Counted 100
== END ==
LOC: REG 06:51
PROVIDERS: ATTENDING PHYSICIAN Internal Medicine Hematology & Oncology; FAMILY PHYSICIAN Family Medicine
DX: C90.00 Multiple myeloma not having achieved remission (principal); D80.1 Nonfamilial hypogammaglobulinemia; Z51.81 Encounter for therapeutic drug level monitoring; R53.1 Weakness; C90.11 Plasma cell leukemia in remission; D69.6 Thrombocytopenia, unspecified
CPT/HCPCS: 36415; 85025

== ENCOUNTER → 2024-05-12 07:58 | Outpatient (REF) | payer MEDICARE, OTHER, SELFPAY ==
[2024-05-12 08:22] LABS: % Basophils 1.3 % (0-2); % Eosinophils 2.1 % (0-6); % Immature Granulocytes 1.3 % (0-0.5); % Lymphocytes 56.8 % (20.5-51.1); % Monocytes 13.1 % (1.7-9.3); % Neutrophils 25.4 % (42.2-75.2); Absolute Eosinophils 0.1 10^3/uL (0-0.7); Absolute Lymphocytes 1.3 10^3/uL (1.2-3.4); Absolute Monocytes 0.3 10^3/uL (0.1-0.6); Absolute Neutrophils 0.6 10^3/uL (1.4-6.5); Hematocrit 37.4 % (39.0-52.0); Hemoglobin 13.1 g/dL (13.0-18.0); Mean Corpuscular Hgb 34.7 pg (27.0-31.0); Mean Corpuscular Volume 99.2 fL (80.0-94.0); Mean Platelet Volume 11.9 fL (7.4-10.4); Platelet Count 75 10^3/uL (130-400); Red Blood Cell Count 3.77 10^6/uL (4.70-6.10); Red Cell Dist. Width 17.3 % (11.5-14.5); White Blood Cell Count 2.4 10^3/uL (4.8-10.8)
[2024-05-12 09:51] LABS: ALT (SGPT) 16 U/L (0-50); AST (SGOT) 20 U/L (17-59); Albumin 3.9 g/dl (3.5-5.0); Alkaline Phosphatase 71 U/L (38-126); Blood Urea Nitrogen 15 mg/dl (9-20); Calcium 9.3 mg/dl (8.4-10.2); Carbon Dioxide 27 mmol/L (22-30); Chloride 105 mmol/L (98-107); Glucose 125 mg/dl (70-99); Potassium 4.2 mmol/L (3.5-5.1); Sodium 137 mmol/L (135-145); Total Bilirubin 1.5 mg/dl (0.2-1.3); eGFR > 60.00
== END ==
LOC: OIDL 07:58
PROVIDERS: ATTENDING PHYSICIAN Internal Medicine Hematology & Oncology; PRIMARYCARE PHYSICIAN Family Medicine
DX: C90.00 Multiple myeloma not having achieved remission (principal)
CPT/HCPCS: 36415; 80053; 85025

== ENCOUNTER → 2024-05-19 08:02 | Outpatient (REF) | payer MEDICARE, OTHER, SELFPAY ==
[2024-05-19 08:31] LABS: % Basophils 0.5 % (0-2); % Eosinophils 0.7 % (0-6); % Immature Granulocytes 1.6 % (0-0.5); % Lymphocytes 15.2 % (20.5-51.1); % Monocytes 15.4 % (1.7-9.3); % Neutrophils 66.6 % (42.2-75.2); Absolute Eosinophils 0.1 10^3/uL (0-0.7); Absolute Immature Granulocytes 0.1 10^3/uL (0-0.05); Absolute Lymphocytes 1.2 10^3/uL (1.2-3.4); Absolute Monocytes 1.2 10^3/uL (0.1-0.6); Absolute Neutrophils 5.1 10^3/uL (1.4-6.5); Hemoglobin 12.8 g/dL (13.0-18.0); Mean Corp Hgb Conc. 34.6 g/dL (33.0-37.0); Mean Corpuscular Hgb 33.8 pg (27.0-31.0); Mean Corpuscular Volume 97.6 fL (80.0-94.0); Platelet Count 77 10^3/uL (130-400); Red Blood Cell Count 3.79 10^6/uL (4.70-6.10); Red Cell Dist. Width 18.8 % (11.5-14.5); White Blood Cell Count 7.6 10^3/uL (4.8-10.8)
[2024-05-19 10:56] LABS: ALT (SGPT) 14 U/L (0-50); AST (SGOT) 18 U/L (17-59); Albumin 3.9 g/dl (3.5-5.0); Alkaline Phosphatase 90 U/L (38-126); Blood Urea Nitrogen 16 mg/dl (9-20); Calcium 9.2 mg/dl (8.4-10.2); Carbon Dioxide 23 mmol/L (22-30); Chloride 106 mmol/L (98-107); Glucose 121 mg/dl (70-99); Potassium 4.2 mmol/L (3.5-5.1); Sodium 137 mmol/L (135-145); Total Bilirubin 1.8 mg/dl (0.2-1.3); eGFR > 60.00
== END ==
LOC: OIDL 08:02
PROVIDERS: ATTENDING PHYSICIAN Internal Medicine Hematology & Oncology; FAMILY PHYSICIAN Family Medicine
DX: C90.00 Multiple myeloma not having achieved remission (principal); D80.1 Nonfamilial hypogammaglobulinemia; Z51.81 Encounter for therapeutic drug level monitoring; R53.1 Weakness; C90.11 Plasma cell leukemia in remission; D69.6 Thrombocytopenia, unspecified
CPT/HCPCS: 36415; 80053; 85025

== ENCOUNTER → 2024-05-26 07:56 | Outpatient (REF) | payer MEDICARE, OTHER, SELFPAY ==
[2024-05-26 08:36] LABS: % Basophils 1.2 % (0-2); % Eosinophils 2.6 % (0-6); % Lymphocytes 20.3 % (20.5-51.1); % Monocytes 13.5 % (1.7-9.3); % Neutrophils 61.4 % (42.2-75.2); Absolute Basophils 0.1 10^3/uL (0-0.2); Absolute Eosinophils 0.2 10^3/uL (0-0.7); Absolute Immature Granulocytes 0.1 10^3/uL (0-0.05); Absolute Lymphocytes 1.2 10^3/uL (1.2-3.4); Absolute Monocytes 0.8 10^3/uL (0.1-0.6); Absolute Neutrophils 3.5 10^3/uL (1.4-6.5); Hematocrit 36.6 % (39.0-52.0); Hemoglobin 12.6 g/dL (13.0-18.0); Mean Corp Hgb Conc. 34.4 g/dL (33.0-37.0); Mean Corpuscular Hgb 34.7 pg (27.0-31.0); Mean Corpuscular Volume 100.8 fL (80.0-94.0); Mean Platelet Volume 12.7 fL (7.4-10.4); Platelet Count 101 10^3/uL (130-400); Red Blood Cell Count 3.63 10^6/uL (4.70-6.10); White Blood Cell Count 5.7 10^3/uL (4.8-10.8)
[2024-05-26 09:55] LABS: ALT (SGPT) 15 U/L (0-50); AST (SGOT) 18 U/L (17-59); Albumin 3.8 g/dl (3.5-5.0); Alkaline Phosphatase 82 U/L (38-126); Blood Urea Nitrogen 13 mg/dl (9-20); Carbon Dioxide 27 mmol/L (22-30); Chloride 104 mmol/L (98-107); Glucose 94 mg/dl (70-99); Potassium 4.5 mmol/L (3.5-5.1); Sodium 136 mmol/L (135-145); Total Bilirubin 1.6 mg/dl (0.2-1.3); Total Protein 5.8 g/dl (6.3-8.2); eGFR > 60.00
== END ==
LOC: OIDL 07:56
PROVIDERS: ATTENDING PHYSICIAN Internal Medicine Hematology & Oncology; FAMILY PHYSICIAN Family Medicine
DX: C90.00 Multiple myeloma not having achieved remission (principal); D80.1 Nonfamilial hypogammaglobulinemia; Z51.81 Encounter for therapeutic drug level monitoring; R53.1 Weakness; C90.11 Plasma cell leukemia in remission; D69.6 Thrombocytopenia, unspecified
CPT/HCPCS: 36415; 80053; 85025

== ENCOUNTER → 2024-06-02 08:09 | Outpatient (REF) | payer MEDICARE, OTHER, SELFPAY ==
[2024-06-02 08:43] LABS: % Eosinophils 1.4 % (0-6); % Immature Granulocytes 0.9 % (0-0.5); % Neutrophils 68.7 % (42.2-75.2); Absolute Basophils 0.1 10^3/uL (0-0.2); Absolute Eosinophils 0.2 10^3/uL (0-0.7); Absolute Immature Granulocytes 0.1 10^3/uL (0-0.05); Absolute Lymphocytes 1.7 10^3/uL (1.2-3.4); Absolute Monocytes 1.4 10^3/uL (0.1-0.6); Absolute Neutrophils 7.5 10^3/uL (1.4-6.5); Hematocrit 38.8 % (39.0-52.0); Hemoglobin 12.9 g/dL (13.0-18.0); Mean Corp Hgb Conc. 33.2 g/dL (33.0-37.0); Mean Corpuscular Hgb 33.5 pg (27.0-31.0); Mean Corpuscular Volume 100.8 fL (80.0-94.0); Platelet Count 100 10^3/uL (130-400); Red Blood Cell Count 3.85 10^6/uL (4.70-6.10); Red Cell Dist. Width 21.2 % (11.5-14.5)
[2024-06-02 10:04] LABS: ALT (SGPT) 14 U/L (0-50); AST (SGOT) 18 U/L (17-59); Albumin 3.9 g/dl (3.5-5.0); Alkaline Phosphatase 105 U/L (38-126); Blood Urea Nitrogen 17 mg/dl (9-20); Calcium 8.9 mg/dl (8.4-10.2); Carbon Dioxide 26 mmol/L (22-30); Chloride 102 mmol/L (98-107); Glucose 100 mg/dl (70-99); Potassium 4.5 mmol/L (3.5-5.1); Sodium 136 mmol/L (135-145); Total Bilirubin 1.5 mg/dl (0.2-1.3); Total Protein 5.9 g/dl (6.3-8.2); eGFR > 60.00
[2024-06-04 00:53] LABS: Beta-2-Microglobulin 3.1 mg/L (<=3.0)
[2024-06-05 05:30] LABS: Albumin 3.84 g/dL (3.75-5.01); Alpha 2 Globulin 0.71 g/dL (0.48-1.05); Free Kappa Light Chains,Quant <0.60 mg/L (3.30-19.40); Free Lambda Light Chains,Quant <1.30 mg/L (5.71-26.30); IgA <2 mg/dL (68-408); IgG 446 mg/dL (768-1632); IgM <10 mg/dL (35-263); Immunofixation Electrophoresis IFE Done; Total Protein-Electrophoresis 5.9 g/dL (6.3-8.2)
== END ==
LOC: OIDL 08:09
PROVIDERS: ATTENDING PHYSICIAN Internal Medicine Hematology & Oncology; FAMILY PHYSICIAN Family Medicine
DX: C90.00 Multiple myeloma not having achieved remission (principal); D80.1 Nonfamilial hypogammaglobulinemia; Z51.81 Encounter for therapeutic drug level monitoring; R53.1 Weakness; C90.11 Plasma cell leukemia in remission; D69.6 Thrombocytopenia, unspecified
CPT/HCPCS: 36415; 80053; 82232; 82784; 83521; 84155; 84165; 85025; 86334

== ENCOUNTER → 2024-06-16 07:58 | Outpatient (REF) | payer MEDICARE, OTHER, SELFPAY ==
[2024-06-16 08:58] LABS: % Basophils 1.5 % (0-2); % Eosinophils 1.7 % (0-6); % Immature Granulocytes 2.1 % (0-0.5); % Lymphocytes 23.5 % (20.5-51.1); % Monocytes 10.6 % (1.7-9.3); % Neutrophils 60.6 % (42.2-75.2); Absolute Basophils 0.1 10^3/uL (0-0.2); Absolute Eosinophils 0.1 10^3/uL (0-0.7); Absolute Immature Granulocytes 0.1 10^3/uL (0-0.05); Absolute Lymphocytes 1.3 10^3/uL (1.2-3.4); Absolute Monocytes 0.6 10^3/uL (0.1-0.6); Absolute Neutrophils 3.3 10^3/uL (1.4-6.5); Hemoglobin 12.4 g/dL (13.0-18.0); Mean Corp Hgb Conc. 33.5 g/dL (33.0-37.0); Mean Corpuscular Hgb 34.6 pg (27.0-31.0); Mean Corpuscular Volume 103.4 fL (80.0-94.0); Mean Platelet Volume 12.8 fL (7.4-10.4); Platelet Count 117 10^3/uL (130-400); Red Blood Cell Count 3.58 10^6/uL (4.70-6.10); Red Cell Dist. Width 21.6 % (11.5-14.5); White Blood Cell Count 5.4 10^3/uL (4.8-10.8)
[2024-06-16 10:08] LABS: ALT (SGPT) 15 U/L (0-50); AST (SGOT) 21 U/L (17-59); Albumin 3.7 g/dl (3.5-5.0); Alkaline Phosphatase 72 U/L (38-126); Blood Urea Nitrogen 13 mg/dl (9-20); Calcium 9.1 mg/dl (8.4-10.2); Carbon Dioxide 28 mmol/L (22-30); Chloride 105 mmol/L (98-107); Glucose 86 mg/dl (70-99); Potassium 4.5 mmol/L (3.5-5.1); Sodium 141 mmol/L (135-145); Total Bilirubin 1.7 mg/dl (0.2-1.3); Total Protein 5.6 g/dl (6.3-8.2); eGFR > 60.00
== END ==
LOC: OIDL 07:58
PROVIDERS: ATTENDING PHYSICIAN Internal Medicine Hematology & Oncology; FAMILY PHYSICIAN Family Medicine
DX: C90.00 Multiple myeloma not having achieved remission (principal); D80.1 Nonfamilial hypogammaglobulinemia; Z51.81 Encounter for therapeutic drug level monitoring; R53.1 Weakness; C90.11 Plasma cell leukemia in remission; D69.6 Thrombocytopenia, unspecified
CPT/HCPCS: 36415; 80053; 85025

== ENCOUNTER → 2024-06-23 11:51 | Outpatient (REF) | payer MEDICARE, OTHER, SELFPAY ==
[2024-06-23 09:34] LABS: % Basophils 1.8 % (0-2); % Eosinophils 1.6 % (0-6); % Immature Granulocytes 2.3 % (0-0.5); % Lymphocytes 37.1 % (20.5-51.1); % Monocytes 10.5 % (1.7-9.3); % Neutrophils 46.7 % (42.2-75.2); Absolute Basophils 0.1 10^3/uL (0-0.2); Absolute Eosinophils 0.1 10^3/uL (0-0.7); Absolute Immature Granulocytes 0.1 10^3/uL (0-0.05); Absolute Lymphocytes 1.6 10^3/uL (1.2-3.4); Absolute Monocytes 0.5 10^3/uL (0.1-0.6); Hematocrit 38.2 % (39.0-52.0); Mean Corpuscular Hgb 35.2 pg (27.0-31.0); Mean Corpuscular Volume 103.5 fL (80.0-94.0); Platelet Count 106 10^3/uL (130-400); Red Blood Cell Count 3.69 10^6/uL (4.70-6.10); Red Cell Dist. Width 20.8 % (11.5-14.5); White Blood Cell Count 4.4 10^3/uL (4.8-10.8)
== END ==
LOC: OIDL 11:51
PROVIDERS: ATTENDING PHYSICIAN Internal Medicine Hematology & Oncology
DX: C90.00 Multiple myeloma not having achieved remission (principal)
CPT/HCPCS: 85025

== ENCOUNTER → 2024-06-30 08:02 | Outpatient (REF) | payer MEDICARE, OTHER, SELFPAY ==
[2024-06-30 08:44] LABS: % Basophils 2.1 % (0-2); % Eosinophils 2.1 % (0-6); % Lymphocytes 40.5 % (20.5-51.1); % Monocytes 12.9 % (1.7-9.3); % Neutrophils 38.4 % (42.2-75.2); Absolute Basophils 0.1 10^3/uL (0-0.2); Absolute Eosinophils 0.1 10^3/uL (0-0.7); Absolute Immature Granulocytes 0.2 10^3/uL (0-0.05); Absolute Lymphocytes 1.7 10^3/uL (1.2-3.4); Absolute Monocytes 0.5 10^3/uL (0.1-0.6); Absolute Neutrophils 1.6 10^3/uL (1.4-6.5); Hematocrit 42.7 % (39.0-52.0); Hemoglobin 14.3 g/dL (13.0-18.0); Mean Corp Hgb Conc. 33.5 g/dL (33.0-37.0); Mean Corpuscular Hgb 34.5 pg (27.0-31.0); Mean Corpuscular Volume 103.1 fL (80.0-94.0); Platelet Count 126 10^3/uL (130-400); Red Blood Cell Count 4.14 10^6/uL (4.70-6.10); Red Cell Dist. Width 19.7 % (11.5-14.5); White Blood Cell Count 4.2 10^3/uL (4.8-10.8)
[2024-06-30 10:14] LABS: ALT (SGPT) 20 U/L (0-50); AST (SGOT) 22 U/L (17-59); Albumin 4.1 g/dl (3.5-5.0); Alkaline Phosphatase 73 U/L (38-126); Blood Urea Nitrogen 14 mg/dl (9-20); Carbon Dioxide 26 mmol/L (22-30); Chloride 103 mmol/L (98-107); Glucose 114 mg/dl (70-99); Potassium 4.6 mmol/L (3.5-5.1); Sodium 140 mmol/L (135-145); Total Bilirubin 1.7 mg/dl (0.2-1.3); eGFR > 60.00
[2024-07-02 10:17] LABS: Beta-2-Microglobulin 2.8 mg/L (<=3.0)
== END ==
LOC: OIDL 08:02
PROVIDERS: ATTENDING PHYSICIAN Internal Medicine Hematology & Oncology; FAMILY PHYSICIAN Family Medicine
DX: C90.00 Multiple myeloma not having achieved remission (principal); D80.1 Nonfamilial hypogammaglobulinemia; Z51.81 Encounter for therapeutic drug level monitoring; R53.1 Weakness; C90.11 Plasma cell leukemia in remission; D69.6 Thrombocytopenia, unspecified
CPT/HCPCS: 36415; 80053; 82232; 82784; 83521; 84155; 84165; 85025; 86334

== ENCOUNTER → 2024-07-13 14:40 | Outpatient (REF) | payer MEDICARE, OTHER, SELFPAY ==
[2024-07-13 15:19] LABS: % Basophils 2.2 % (0-2); % Eosinophils 2.2 % (0-6); % Immature Granulocytes 7.1 % (0-0.5); % Lymphocytes 42.6 % (20.5-51.1); % Monocytes 20.9 % (1.7-9.3); Absolute Basophils 0.1 10^3/uL (0-0.2); Absolute Eosinophils 0.1 10^3/uL (0-0.7); Absolute Immature Granulocytes 0.3 10^3/uL (0-0.05); Absolute Neutrophils 1.2 10^3/uL (1.4-6.5); Hematocrit 41.2 % (39.0-52.0); Hemoglobin 13.8 g/dL (13.0-18.0); Mean Corp Hgb Conc. 33.5 g/dL (33.0-37.0); Mean Corpuscular Hgb 34.2 pg (27.0-31.0); Nucleated Red Blood Cells % 0 % (-); Red Blood Cell Count 4.04 10^6/uL (4.70-6.10); Red Cell Dist. Width 18.4 % (11.5-14.5); White Blood Cell Count 4.7 10^3/uL (4.8-10.8)
[2024-07-13 15:29] LABS: Platelet Count 123 10^3/uL (130-400)
[2024-07-13 15:54] LABS: ALT (SGPT) 22 U/L (0-50); AST (SGOT) 23 U/L (17-59); Albumin 3.8 g/dl (3.5-5.0); Alkaline Phosphatase 72 U/L (38-126); Blood Urea Nitrogen 13 mg/dl (9-20); Calcium 8.7 mg/dl (8.4-10.2); Carbon Dioxide 27 mmol/L (22-30); Chloride 102 mmol/L (98-107); Glucose 141 mg/dl (70-99); Potassium 4.9 mmol/L (3.5-5.1); Sodium 139 mmol/L (135-145); Total Bilirubin 1.2 mg/dl (0.2-1.3); Total Protein 5.7 g/dl (6.3-8.2); eGFR > 60.00
== END ==
LOC: REG 14:40
PROVIDERS: ATTENDING PHYSICIAN Internal Medicine Hematology & Oncology; FAMILY PHYSICIAN Family Medicine
DX: C90.00 Multiple myeloma not having achieved remission (principal); D80.0 Hereditary hypogammaglobulinemia; Z51.81 Encounter for therapeutic drug level monitoring; R53.1 Weakness; C90.11 Plasma cell leukemia in remission; D69.6 Thrombocytopenia, unspecified
CPT/HCPCS: 36415; 80053; 85025

== ENCOUNTER → 2024-07-28 07:59 | Outpatient (REF) | payer MEDICARE, OTHER, SELFPAY ==
[2024-07-28 08:52] LABS: % Eosinophils 2.5 % (0-6); % Immature Granulocytes 7.4 % (0-0.5); % Lymphocytes 40.5 % (20.5-51.1); % Monocytes 20.1 % (1.7-9.3); % Neutrophils 27.5 % (42.2-75.2); Absolute Basophils 0.1 10^3/uL (0-0.2); Absolute Eosinophils 0.1 10^3/uL (0-0.7); Absolute Immature Granulocytes 0.3 10^3/uL (0-0.05); Absolute Lymphocytes 1.8 10^3/uL (1.2-3.4); Absolute Monocytes 0.9 10^3/uL (0.1-0.6); Absolute Neutrophils 1.2 10^3/uL (1.4-6.5); Hematocrit 44.6 % (39.0-52.0); Hemoglobin 14.9 g/dL (13.0-18.0); Mean Corp Hgb Conc. 33.4 g/dL (33.0-37.0); Mean Corpuscular Hgb 33.2 pg (27.0-31.0); Mean Corpuscular Volume 99.3 fL (80.0-94.0); Platelet Count 99 10^3/uL (130-400); Red Blood Cell Count 4.49 10^6/uL (4.70-6.10); Red Cell Dist. Width 16.8 % (11.5-14.5); White Blood Cell Count 4.5 10^3/uL (4.8-10.8)
[2024-07-28 09:18] LABS: ALT (SGPT) 19 U/L (0-50); AST (SGOT) 24 U/L (17-59); Alkaline Phosphatase 61 U/L (38-126); Blood Urea Nitrogen 15 mg/dl (9-20); Calcium 8.9 mg/dl (8.4-10.2); Carbon Dioxide 25 mmol/L (22-30); Chloride 103 mmol/L (98-107); Glucose 156 mg/dl (70-99); Potassium 4.5 mmol/L (3.5-5.1); Sodium 137 mmol/L (135-145); Total Bilirubin 1.5 mg/dl (0.2-1.3); Total Protein 6.2 g/dl (6.3-8.2); eGFR > 60.00
[2024-07-31 03:24] LABS: Albumin 3.89 g/dL (3.75-5.01); Alpha 1 Globulin 0.24 g/dL (0.19-0.46); Alpha 2 Globulin 0.65 g/dL (0.48-1.05); Free Kappa Light Chains,Quant 0.93 mg/L (3.30-19.40); Free Lambda Light Chains,Quant <1.30 mg/L (5.71-26.30); IgA <2 mg/dL (68-408); IgG 798 mg/dL (768-1632); IgM <10 mg/dL (35-263); Immunofixation Electrophoresis IFE Done; Total Protein-Electrophoresis 6.1 g/dL (6.3-8.2)
== END ==
LOC: OIDL 07:59
PROVIDERS: ATTENDING PHYSICIAN Internal Medicine Hematology & Oncology; FAMILY PHYSICIAN Family Medicine
DX: C90.00 Multiple myeloma not having achieved remission (principal); D80.1 Nonfamilial hypogammaglobulinemia; Z51.81 Encounter for therapeutic drug level monitoring
CPT/HCPCS: 36415; 80053; 82784; 83521; 84155; 84165; 85025; 86334

== ENCOUNTER → 2024-08-11 08:05 | Outpatient (REF) | payer MEDICARE, OTHER, SELFPAY ==
[2024-08-11 09:12] LABS: Hematocrit 44.5 % (39.0-52.0); Hemoglobin 14.9 g/dL (13.0-18.0); Mean Corp Hgb Conc. 33.5 g/dL (33.0-37.0); Mean Corpuscular Hgb 32.3 pg (27.0-31.0); Mean Corpuscular Volume 96.5 fL (80.0-94.0); Platelet Count 104 10^3/uL (130-400); Red Blood Cell Count 4.61 10^6/uL (4.70-6.10); Red Cell Dist. Width 17.2 % (11.5-14.5); White Blood Cell Count 6.4 10^3/uL (4.8-10.8)
[2024-08-11 09:56] LABS: Absolute Neutrophils -Man Diff 2.1 10^3/uL (1.4-6.5); Band Neutrophils 0 % (0-3); Eosinophils 3 % (0-6); Lymphocytes 42 % (20-51); Monocytes 20 % (2-9); Myelocytes 1 % (-); Normal RBC Morphology Yes; Platelets Checked Yes; Segmented Neutrophils 34 % (42-75); Total Cells Counted 100
[2024-08-11 10:08] LABS: ALT (SGPT) 19 U/L (0-50); AST (SGOT) 22 U/L (17-59); Albumin 4.1 g/dl (3.5-5.0); Alkaline Phosphatase 61 U/L (38-126); Blood Urea Nitrogen 21 mg/dl (9-20); Calcium 9.1 mg/dl (8.4-10.2); Carbon Dioxide 26 mmol/L (22-30); Chloride 101 mmol/L (98-107); Glucose 77 mg/dl (70-99); Potassium 4.8 mmol/L (3.5-5.1); Sodium 140 mmol/L (135-145); Total Bilirubin 1.2 mg/dl (0.2-1.3); Total Protein 6.4 g/dl (6.3-8.2); eGFR > 60.00
== END ==
LOC: OIDL 08:05
PROVIDERS: ATTENDING PHYSICIAN Internal Medicine Hematology & Oncology; FAMILY PHYSICIAN Family Medicine
DX: C90.00 Multiple myeloma not having achieved remission (principal)
CPT/HCPCS: 36415; 80053; 85025

== ENCOUNTER → 2024-08-25 08:02 | Outpatient (REF) | payer MEDICARE, OTHER, SELFPAY ==
[2024-08-25 09:28] LABS: Hematocrit 43.2 % (39.0-52.0); Hemoglobin 14.6 g/dL (13.0-18.0); Mean Corp Hgb Conc. 33.8 g/dL (33.0-37.0); Mean Corpuscular Hgb 32.8 pg (27.0-31.0); Mean Corpuscular Volume 97.1 fL (80.0-94.0); Platelet Count 85 10^3/uL (130-400); Red Blood Cell Count 4.45 10^6/uL (4.70-6.10); Red Cell Dist. Width 17.6 % (11.5-14.5); White Blood Cell Count 5.3 10^3/uL (4.8-10.8)
[2024-08-25 09:35] LABS: ALT (SGPT) 20 U/L (0-50); AST (SGOT) 23 U/L (17-59); Albumin 3.7 g/dl (3.5-5.0); Alkaline Phosphatase 67 U/L (38-126); Blood Urea Nitrogen 17 mg/dl (9-20); Calcium 8.8 mg/dl (8.4-10.2); Carbon Dioxide 26 mmol/L (22-30); Chloride 105 mmol/L (98-107); Glucose 102 mg/dl (70-99); Potassium 4.6 mmol/L (3.5-5.1); Sodium 137 mmol/L (135-145); Total Bilirubin 1.5 mg/dl (0.2-1.3); Total Protein 5.8 g/dl (6.3-8.2); eGFR > 60.00
[2024-08-25 10:29] LABS: Absolute Neutrophils -Man Diff 1.4 10^3/uL (1.4-6.5); Band Neutrophils 0 % (0-3); Eosinophils 2 % (0-6); Lymphocytes 47 % (20-51); Monocytes 16 % (2-9); Platelets Checked Yes; Segmented Neutrophils 28 % (42-75)
[2024-08-25 10:30] LABS: Normal RBC Morphology Yes; Total Cells Counted 100
[2024-08-27 17:41] LABS: Beta-2-Microglobulin 2.2 mg/L (<=3.0)
[2024-08-28 07:54] LABS: Albumin 3.66 g/dL (3.75-5.01); Alpha 1 Globulin 0.23 g/dL (0.19-0.46); Alpha 2 Globulin 0.64 g/dL (0.48-1.05); Free Kappa Light Chains,Quant 1.01 mg/L (3.30-19.40); Free Lambda Light Chains,Quant <1.30 mg/L (5.71-26.30); IgA <2 mg/dL (68-408); IgG 537 mg/dL (768-1632); IgM <10 mg/dL (35-263); Immunofixation Electrophoresis IFE Done; Total Protein-Electrophoresis 5.6 g/dL (6.3-8.2)
== END ==
LOC: OIDL 08:02
PROVIDERS: ATTENDING PHYSICIAN Internal Medicine Hematology & Oncology
DX: C90.00 Multiple myeloma not having achieved remission (principal)
CPT/HCPCS: 36415; 80053; 82232; 82784; 83521; 84155; 84165; 85025; 86334

== ENCOUNTER → 2024-09-08 08:04 | Outpatient (REF) | payer MEDICARE, OTHER, SELFPAY ==
[2024-09-08 09:58] LABS: ALT (SGPT) 20 U/L (0-50); AST (SGOT) 22 U/L (17-59); Alkaline Phosphatase 57 U/L (38-126); Blood Urea Nitrogen 17 mg/dl (9-20); Calcium 9.1 mg/dl (8.4-10.2); Carbon Dioxide 29 mmol/L (22-30); Chloride 102 mmol/L (98-107); Glucose 114 mg/dl (70-99); Potassium 4.5 mmol/L (3.5-5.1); Sodium 140 mmol/L (135-145); Total Bilirubin 1.4 mg/dl (0.2-1.3); Total Protein 6.1 g/dl (6.3-8.2); eGFR > 60.00
[2024-09-08 16:51] LABS: Hematocrit 47.8 % (39.0-52.0); Hemoglobin 15.4 g/dL (13.0-18.0); Mean Corp Hgb Conc. 32.2 g/dL (33.0-37.0); Mean Corpuscular Hgb 32.8 pg (27.0-31.0); Mean Corpuscular Volume 101.7 fL (80.0-94.0); Red Cell Dist. Width 18.8 % (11.5-14.5); White Blood Cell Count 3.7 10^3/uL (4.8-10.8)
[2024-09-08 16:52] LABS: Atypical Lymphocytes 1 %; Band Neutrophils 4 % (0-3); Eosinophils 2 % (0-6); Lymphocytes 29 % (20-51); Metamyelocytes 1 % (-); Monocytes 27 % (2-9); Myelocytes 11 % (-); Normal RBC Morphology Yes; Platelets Checked Yes; Segmented Neutrophils 25 % (42-75); Total Cells Counted 100
== END ==
LOC: OIDL 08:04
PROVIDERS: ATTENDING PHYSICIAN Internal Medicine Hematology & Oncology; FAMILY PHYSICIAN Family Medicine
DX: C90.00 Multiple myeloma not having achieved remission (principal); D80.1 Nonfamilial hypogammaglobulinemia; Z51.81 Encounter for therapeutic drug level monitoring; C90.11 Plasma cell leukemia in remission; D69.6 Thrombocytopenia, unspecified
CPT/HCPCS: 36415; 80053; 85025

== ENCOUNTER → 2024-09-11 09:41 | Outpatient (REF) | payer MEDICARE, OTHER, SELFPAY ==
[2024-09-11 12:15] LABS: Hematocrit 45.3 % (39.0-52.0); Mean Corp Hgb Conc. 33.1 g/dL (33.0-37.0); Mean Corpuscular Hgb 32.9 pg (27.0-31.0); Mean Corpuscular Volume 99.3 fL (80.0-94.0); Red Blood Cell Count 4.56 10^6/uL (4.70-6.10); Red Cell Dist. Width 18.8 % (11.5-14.5); White Blood Cell Count 4.6 10^3/uL (4.8-10.8)
[2024-09-11 12:52] LABS: Platelet Count 84 10^3/uL (130-400)
[2024-09-11 13:00] LABS: Absolute Neutrophils -Man Diff 1.7 10^3/uL (1.4-6.5); Band Neutrophils 6 % (0-3); Eosinophils 2 % (0-6); Lymphocytes 25 % (20-51); Monocytes 28 % (2-9); Myelocytes 6 % (-); Normal RBC Morphology Yes; Platelets Checked Yes; Segmented Neutrophils 33 % (42-75); Total Cells Counted 100
== END ==
LOC: REG 09:41
PROVIDERS: ATTENDING PHYSICIAN Internal Medicine Hematology & Oncology; FAMILY PHYSICIAN Family Medicine
DX: C90.00 Multiple myeloma not having achieved remission (principal); D80.1 Nonfamilial hypogammaglobulinemia; Z51.81 Encounter for therapeutic drug level monitoring; R53.1 Weakness; C90.11 Plasma cell leukemia in remission; D69.6 Thrombocytopenia, unspecified
CPT/HCPCS: 36415; 85025

== ENCOUNTER → 2024-09-22 08:37 | Outpatient (REF) | payer MEDICARE, OTHER, SELFPAY ==
[2024-09-22 10:09] LABS: Hematocrit 45.8 % (39.0-52.0); Hemoglobin 15.6 g/dL (13.0-18.0); Mean Corp Hgb Conc. 34.1 g/dL (33.0-37.0); Mean Corpuscular Hgb 33.5 pg (27.0-31.0); Mean Corpuscular Volume 98.3 fL (80.0-94.0); Red Blood Cell Count 4.66 10^6/uL (4.70-6.10); Red Cell Dist. Width 18.8 % (11.5-14.5); White Blood Cell Count 3.7 10^3/uL (4.8-10.8)
[2024-09-22 10:34] LABS: ALT (SGPT) 20 U/L (0-50); AST (SGOT) 22 U/L (17-59); Albumin 4.2 g/dl (3.5-5.0); Alkaline Phosphatase 64 U/L (38-126); Blood Urea Nitrogen 17 mg/dl (9-20); Calcium 8.9 mg/dl (8.4-10.2); Carbon Dioxide 28 mmol/L (22-30); Chloride 103 mmol/L (98-107); Glucose 95 mg/dl (70-99); Potassium 4.5 mmol/L (3.5-5.1); Sodium 140 mmol/L (135-145); Total Bilirubin 2.1 mg/dl (0.2-1.3); Total Protein 6.2 g/dl (6.3-8.2); eGFR > 60.00
[2024-09-22 10:59] LABS: Platelet Count 65 10^3/uL (130-400)
[2024-09-22 11:00] LABS: Absolute Neutrophils -Man Diff 0.9 10^3/uL (1.4-6.5); Atypical Lymphocytes 6 %; Band Neutrophils 0 % (0-3); Eosinophils 4 % (0-6); Lymphocytes 42 % (20-51); Monocytes 23 % (2-9); Normal RBC Morphology Yes; Platelets Checked Yes; Segmented Neutrophils 25 % (42-75); Total Cells Counted 100
[2024-09-23 21:53] LABS: Beta-2-Microglobulin 2.3 mg/L (<=3.0)
== END ==
LOC: OIDL 08:37
PROVIDERS: ATTENDING PHYSICIAN Internal Medicine Hematology & Oncology; FAMILY PHYSICIAN Family Medicine
DX: C90.00 Multiple myeloma not having achieved remission (principal); D80.1 Nonfamilial hypogammaglobulinemia; Z51.81 Encounter for therapeutic drug level monitoring; C90.11 Plasma cell leukemia in remission; D69.6 Thrombocytopenia, unspecified
CPT/HCPCS: 36415; 80053; 82232; 82784; 83521; 84155; 84165; 85025; 86334

== ENCOUNTER → 2024-10-02 13:51 | Outpatient (REF) | payer MEDICARE, OTHER, SELFPAY | LOC: HWRAD 13:51 | PROVIDERS: ATTENDING PHYSICIAN Internal Medicine Hematology & Oncology; FAMILY PHYSICIAN Family Medicine | DX: C90 Multiple myeloma and malignant plasma cell neoplasms (principal); C90.00 Multiple myeloma not having achieved remission | CPT/HCPCS: 74176 ==

== ENCOUNTER → 2024-10-06 07:45 | Outpatient (REF) | payer MEDICARE, OTHER, SELFPAY ==
[2024-10-06 09:58] LABS: ALT (SGPT) 20 U/L (0-50); AST (SGOT) 21 U/L (17-59); Albumin 4.2 g/dl (3.5-5.0); Alkaline Phosphatase 55 U/L (38-126); Blood Urea Nitrogen 19 mg/dl (9-20); Calcium 9.2 mg/dl (8.4-10.2); Carbon Dioxide 29 mmol/L (22-30); Chloride 101 mmol/L (98-107); Glucose 89 mg/dl (70-99); Potassium 4.4 mmol/L (3.5-5.1); Sodium 136 mmol/L (135-145); Total Bilirubin 2.2 mg/dl (0.2-1.3); Total Protein 6.2 g/dl (6.3-8.2); eGFR > 60.00
[2024-10-06 10:08] LABS: % Basophils 1.2 % (0-2); % Eosinophils 6.4 % (0-6); % Immature Granulocytes 1.6 % (0-0.5); % Lymphocytes 48.4 % (20.5-51.1); % Neutrophils 30.4 % (42.2-75.2); Absolute Eosinophils 0.2 10^3/uL (0-0.7); Absolute Lymphocytes 1.2 10^3/uL (1.2-3.4); Absolute Monocytes 0.3 10^3/uL (0.1-0.6); Absolute Neutrophils 0.8 10^3/uL (1.4-6.5); Hematocrit 45.9 % (39.0-52.0); Hemoglobin 15.3 g/dL (13.0-18.0); Mean Corp Hgb Conc. 33.3 g/dL (33.0-37.0); Mean Corpuscular Volume 99.1 fL (80.0-94.0); Nucleated Red Blood Cells % 0.8 % (-); Platelet Count 56 10^3/uL (130-400); Red Blood Cell Count 4.63 10^6/uL (4.70-6.10); Red Cell Dist. Width 19.3 % (11.5-14.5); White Blood Cell Count 2.5 10^3/uL (4.8-10.8)
== END ==
LOC: OIDL 07:45
PROVIDERS: ATTENDING PHYSICIAN Internal Medicine Hematology & Oncology
DX: C90.00 Multiple myeloma not having achieved remission (principal)
CPT/HCPCS: 80053; 85025

== ENCOUNTER → 2024-10-20 07:55 | Outpatient (REF) | payer MEDICARE, OTHER, SELFPAY ==
[2024-10-20 08:35] LABS: % Basophils 0.6 % (0-2); % Eosinophils 10.1 % (0-6); % Immature Granulocytes 0.6 % (0-0.5); % Lymphocytes 62.7 % (20.5-51.1); % Monocytes 9.5 % (1.7-9.3); % Neutrophils 16.5 % (42.2-75.2); Absolute Eosinophils 0.2 10^3/uL (0-0.7); Absolute Monocytes 0.2 10^3/uL (0.1-0.6); Absolute Neutrophils 0.3 10^3/uL (1.4-6.5); Hematocrit 38.3 % (39.0-52.0); Hemoglobin 13.2 g/dL (13.0-18.0); Mean Corp Hgb Conc. 34.5 g/dL (33.0-37.0); Mean Corpuscular Hgb 33.9 pg (27.0-31.0); Mean Corpuscular Volume 98.5 fL (80.0-94.0); Mean Platelet Volume 11.6 fL (7.4-10.4); Platelet Count 24 10^3/uL (130-400); Red Blood Cell Count 3.89 10^6/uL (4.70-6.10); White Blood Cell Count 1.6 10^3/uL (4.8-10.8)
[2024-10-20 09:25] LABS: ALT (SGPT) 21 U/L (0-50); AST (SGOT) 20 U/L (17-59); Albumin 3.7 g/dl (3.5-5.0); Alkaline Phosphatase 69 U/L (38-126); Blood Urea Nitrogen 18 mg/dl (9-20); Calcium 8.5 mg/dl (8.4-10.2); Carbon Dioxide 28 mmol/L (22-30); Chloride 105 mmol/L (98-107); Glucose 109 mg/dl (70-99); Potassium 4.9 mmol/L (3.5-5.1); Sodium 138 mmol/L (135-145); Total Bilirubin 1.9 mg/dl (0.2-1.3); Total Protein 5.5 g/dl (6.3-8.2); eGFR > 60.00
== END ==
LOC: OIDL 07:55
PROVIDERS: ATTENDING PHYSICIAN Internal Medicine Hematology & Oncology; FAMILY PHYSICIAN Family Medicine
DX: C90.00 Multiple myeloma not having achieved remission (principal); D80.1 Nonfamilial hypogammaglobulinemia; Z51.81 Encounter for therapeutic drug level monitoring; R53.1 Weakness; C90.11 Plasma cell leukemia in remission; D69.6 Thrombocytopenia, unspecified
CPT/HCPCS: 36415; 80053; 85025

== ENCOUNTER → 2024-10-23 07:40 | Outpatient (REF) | payer MEDICARE, OTHER, SELFPAY ==
[2024-10-23 08:25] LABS: % Basophils 0.5 % (0-2); % Eosinophils 11.4 % (0-6); % Lymphocytes 65.2 % (20.5-51.1); % Monocytes 8.2 % (1.7-9.3); % Neutrophils 14.7 % (42.2-75.2); Absolute Eosinophils 0.2 10^3/uL (0-0.7); Absolute Lymphocytes 1.2 10^3/uL (1.2-3.4); Absolute Monocytes 0.2 10^3/uL (0.1-0.6); Absolute Neutrophils 0.3 10^3/uL (1.4-6.5); Hematocrit 36.6 % (39.0-52.0); Hemoglobin 13.2 g/dL (13.0-18.0); Mean Corp Hgb Conc. 36.1 g/dL (33.0-37.0); Mean Corpuscular Hgb 34.9 pg (27.0-31.0); Mean Corpuscular Volume 96.8 fL (80.0-94.0); Mean Platelet Volume 10.8 fL (7.4-10.4); Platelet Count 18 10^3/uL (130-400); Red Blood Cell Count 3.78 10^6/uL (4.70-6.10); White Blood Cell Count 1.8 10^3/uL (4.8-10.8)
== END ==
LOC: OIDL 07:40
PROVIDERS: ATTENDING PHYSICIAN Internal Medicine Hematology & Oncology; FAMILY PHYSICIAN Nurse Practitioner Family
DX: C90.00 Multiple myeloma not having achieved remission (principal); D80.1 Nonfamilial hypogammaglobulinemia; Z51.81 Encounter for therapeutic drug level monitoring; R53.1 Weakness; C90.11 Plasma cell leukemia in remission; D69.6 Thrombocytopenia, unspecified
CPT/HCPCS: 36415; 82784; 83521; 84155; 84165; 85025; 86334

== ENCOUNTER → 2024-11-03 07:58 | Outpatient (REF) | payer MEDICARE, OTHER, SELFPAY ==
[2024-11-03 09:30] LABS: Hematocrit 31.9 % (39.0-52.0); Mean Corp Hgb Conc. 34.5 g/dL (33.0-37.0); Mean Corpuscular Hgb 34.7 pg (27.0-31.0); Mean Corpuscular Volume 100.6 fL (80.0-94.0); Platelet Count 11 10^3/uL (130-400); Red Blood Cell Count 3.17 10^6/uL (4.70-6.10); Red Cell Dist. Width 18.5 % (11.5-14.5); White Blood Cell Count 7.1 10^3/uL (4.8-10.8)
[2024-11-03 10:02] LABS: ALT (SGPT) 18 U/L (0-50); AST (SGOT) 17 U/L (17-59); Albumin 3.8 g/dl (3.5-5.0); Alkaline Phosphatase 103 U/L (38-126); Blood Urea Nitrogen 20 mg/dl (9-20); Calcium 8.7 mg/dl (8.4-10.2); Carbon Dioxide 27 mmol/L (22-30); Chloride 103 mmol/L (98-107); Glucose 100 mg/dl (70-99); Potassium 4.5 mmol/L (3.5-5.1); Sodium 139 mmol/L (135-145); Total Bilirubin 1.5 mg/dl (0.2-1.3); Total Protein 5.6 g/dl (6.3-8.2); eGFR > 60.00
[2024-11-03 10:48] LABS: % Basophils 1.3 % (0-2); % Eosinophils 0.4 % (0-6); % Immature Granulocytes 2.4 % (0-0.5); % Monocytes 14.3 % (1.7-9.3); % Neutrophils 60.6 % (42.2-75.2); Absolute Basophils 0.1 10^3/uL (0-0.2); Absolute Immature Granulocytes 0.2 10^3/uL (0-0.05); Absolute Lymphocytes 1.5 10^3/uL (1.2-3.4); Absolute Neutrophils 4.3 10^3/uL (1.4-6.5); Nucleated Red Blood Cells % 0.3 % (-)
[2024-11-04 14:49] LABS: Beta-2-Microglobulin 2.8 mg/L (<=3.0)
[2024-11-05 12:48] LABS: Albumin 3.66 g/dL (3.75-5.01); Alpha 1 Globulin 0.29 g/dL (0.19-0.46); Alpha 2 Globulin 0.67 g/dL (0.48-1.05); Free Lambda Light Chains,Quant <1.30 mg/L (5.71-26.30); IgA 3 mg/dL (68-408); IgG 276 mg/dL (768-1632); IgM 13 mg/dL (35-263); Immunofixation Electrophoresis IFE Done; Total Protein-Electrophoresis 5.5 g/dL (6.3-8.2)
== END ==
LOC: OIDL 07:58
PROVIDERS: ATTENDING PHYSICIAN Internal Medicine Hematology & Oncology
DX: C90.00 Multiple myeloma not having achieved remission (principal); D80.1 Nonfamilial hypogammaglobulinemia
CPT/HCPCS: 36415; 80053; 82232; 82784; 83521; 84155; 84165; 85025; 86334

== ENCOUNTER 2024-11-13 08:52 | Outpatient (RCR) | payer MEDICARE, OTHER, SELFPAY ==
[2024-10-26 13:14] VITALS: BP 108/69
[2024-10-26 13:35] VITALS: BP 126/77
[2024-10-26 14:16] VITALS: BP 97/64
[2024-11-04 08:55] VITALS: BP 116/74
[2024-11-04 09:18] VITALS: BP 102/46
[2024-11-04 10:23] VITALS: BP 107/63
[2024-11-10 08:35] LABS: % Basophils 0.5 % (0-2); % Eosinophils 0.5 % (0-6); % Immature Granulocytes 0.8 % (0-0.5); % Lymphocytes 22.1 % (20.5-51.1); % Monocytes 12.9 % (1.7-9.3); % Neutrophils 63.2 % (42.2-75.2); Absolute Immature Granulocytes 0.1 10^3/uL (0-0.05); Absolute Lymphocytes 1.4 10^3/uL (1.2-3.4); Absolute Monocytes 0.8 10^3/uL (0.1-0.6); Absolute Neutrophils 4.1 10^3/uL (1.4-6.5); Hematocrit 31.5 % (39.0-52.0); Hemoglobin 10.8 g/dL (13.0-18.0); Mean Corp Hgb Conc. 34.3 g/dL (33.0-37.0); Mean Corpuscular Hgb 34.8 pg (27.0-31.0); Mean Corpuscular Volume 101.6 fL (80.0-94.0); Mean Platelet Volume 10.9 fL (7.4-10.4); Platelet Count 30 10^3/uL (130-400); Red Cell Dist. Width 18.7 % (11.5-14.5); White Blood Cell Count 6.5 10^3/uL (4.8-10.8)
[2024-11-10 09:14] LABS: ALT (SGPT) 20 U/L (0-50); AST (SGOT) 19 U/L (17-59); Albumin 3.9 g/dl (3.5-5.0); Alkaline Phosphatase 114 U/L (38-126); Blood Urea Nitrogen 16 mg/dl (9-20); Calcium 8.7 mg/dl (8.4-10.2); Carbon Dioxide 27 mmol/L (22-30); Chloride 103 mmol/L (98-107); Glucose 89 mg/dl (70-99); Potassium 4.6 mmol/L (3.5-5.1); Sodium 138 mmol/L (135-145); Total Protein 5.8 g/dl (6.3-8.2); eGFR > 60.00
[2024-11-13 09:04] LABS: % Basophils 0.2 % (0-2); % Immature Granulocytes 1.4 % (0-0.5); % Lymphocytes 21.4 % (20.5-51.1); % Monocytes 10.2 % (1.7-9.3); % Neutrophils 65.8 % (42.2-75.2); Absolute Eosinophils 0.1 10^3/uL (0-0.7); Absolute Immature Granulocytes 0.1 10^3/uL (0-0.05); Absolute Lymphocytes 1.3 10^3/uL (1.2-3.4); Absolute Monocytes 0.6 10^3/uL (0.1-0.6); Absolute Neutrophils 3.9 10^3/uL (1.4-6.5); Hematocrit 29.8 % (39.0-52.0); Hemoglobin 10.4 g/dL (13.0-18.0); Mean Corp Hgb Conc. 34.9 g/dL (33.0-37.0); Mean Corpuscular Hgb 35.7 pg (27.0-31.0); Mean Corpuscular Volume 102.4 fL (80.0-94.0); Mean Platelet Volume 10.7 fL (7.4-10.4); Platelet Count 32 10^3/uL (130-400); Red Blood Cell Count 2.91 10^6/uL (4.70-6.10); Red Cell Dist. Width 19.3 % (11.5-14.5); White Blood Cell Count 5.9 10^3/uL (4.8-10.8)
[2024-11-13 09:56] LABS: ALT (SGPT) 20 U/L (0-50); AST (SGOT) 19 U/L (17-59); Albumin 3.8 g/dl (3.5-5.0); Alkaline Phosphatase 96 U/L (38-126); Blood Urea Nitrogen 16 mg/dl (9-20); Carbon Dioxide 27 mmol/L (22-30); Chloride 103 mmol/L (98-107); Glucose 127 mg/dl (70-99); Potassium 4.5 mmol/L (3.5-5.1); Sodium 139 mmol/L (135-145); Total Bilirubin 1.2 mg/dl (0.2-1.3); Total Protein 5.6 g/dl (6.3-8.2); eGFR > 60.00
== END 2024-11-13 23:59 | disposition home or self-care (01) ==
LOC: OID 08:52
PROVIDERS: ATTENDING PHYSICIAN Nurse Practitioner Adult Health; FAMILY PHYSICIAN Family Medicine
DX: C90.00 Multiple myeloma not having achieved remission (principal)
CPT/HCPCS: 36415; 36430; 80053; 85025; 93306; 93356; P9073

== ENCOUNTER 2024-12-07 07:56 | Outpatient (RCR) | payer MEDICARE, OTHER, SELFPAY ==
[2024-11-17 08:42] LABS: % Basophils 0.3 % (0-2); % Eosinophils 0.6 % (0-6); % Immature Granulocytes 1.1 % (0-0.5); % Lymphocytes 23.8 % (20.5-51.1); % Monocytes 12.4 % (1.7-9.3); % Neutrophils 61.8 % (42.2-75.2); Absolute Immature Granulocytes 0.1 10^3/uL (0-0.05); Absolute Lymphocytes 1.7 10^3/uL (1.2-3.4); Absolute Monocytes 0.9 10^3/uL (0.1-0.6); Absolute Neutrophils 4.5 10^3/uL (1.4-6.5); Hematocrit 30.8 % (39.0-52.0); Hemoglobin 10.6 g/dL (13.0-18.0); Mean Corp Hgb Conc. 34.4 g/dL (33.0-37.0); Mean Corpuscular Hgb 35.2 pg (27.0-31.0); Mean Corpuscular Volume 102.3 fL (80.0-94.0); Mean Platelet Volume 9.6 fL (7.4-10.4); Red Blood Cell Count 3.01 10^6/uL (4.70-6.10); Red Cell Dist. Width 19.6 % (11.5-14.5); White Blood Cell Count 7.3 10^3/uL (4.8-10.8)
[2024-11-17 08:47] LABS: Platelet Count 39 10^3/uL (130-400)
[2024-11-17 10:06] LABS: ALT (SGPT) 22 U/L (0-50); AST (SGOT) 23 U/L (17-59); Albumin 4.3 g/dl (3.5-5.0); Alkaline Phosphatase 104 U/L (38-126); Blood Urea Nitrogen 13 mg/dl (9-20); Calcium 8.8 mg/dl (8.4-10.2); Carbon Dioxide 25 mmol/L (22-30); Chloride 101 mmol/L (98-107); Glucose 118 mg/dl (70-99); Potassium 4.5 mmol/L (3.5-5.1); Sodium 137 mmol/L (135-145); Total Protein 6.9 g/dl (6.3-8.2); eGFR > 60.00
[2024-11-23 08:21] LABS: % Basophils 0.4 % (0-2); % Eosinophils 1.3 % (0-6); % Immature Granulocytes 0.9 % (0-0.5); % Lymphocytes 24.5 % (20.5-51.1); % Monocytes 9.7 % (1.7-9.3); % Neutrophils 63.2 % (42.2-75.2); Absolute Eosinophils 0.1 10^3/uL (0-0.7); Absolute Immature Granulocytes 0.1 10^3/uL (0-0.05); Absolute Lymphocytes 1.7 10^3/uL (1.2-3.4); Absolute Monocytes 0.7 10^3/uL (0.1-0.6); Absolute Neutrophils 4.3 10^3/uL (1.4-6.5); Hematocrit 32.8 % (39.0-52.0); Hemoglobin 11.5 g/dL (13.0-18.0); Mean Corp Hgb Conc. 35.1 g/dL (33.0-37.0); Mean Corpuscular Hgb 36.7 pg (27.0-31.0); Mean Corpuscular Volume 104.8 fL (80.0-94.0); Mean Platelet Volume 10.5 fL (7.4-10.4); Platelet Count 64 10^3/uL (130-400); Red Blood Cell Count 3.13 10^6/uL (4.70-6.10); White Blood Cell Count 6.7 10^3/uL (4.8-10.8)
[2024-11-23 09:15] LABS: ALT (SGPT) 22 U/L (0-50); AST (SGOT) 23 U/L (17-59); Albumin 4.1 g/dl (3.5-5.0); Alkaline Phosphatase 103 U/L (38-126); Blood Urea Nitrogen 15 mg/dl (9-20); Calcium 8.9 mg/dl (8.4-10.2); Carbon Dioxide 26 mmol/L (22-30); Chloride 102 mmol/L (98-107); Glucose 115 mg/dl (70-99); Potassium 4.6 mmol/L (3.5-5.1); Sodium 136 mmol/L (135-145); Total Bilirubin 1.3 mg/dl (0.2-1.3); Total Protein 6.4 g/dl (6.3-8.2); eGFR > 60.00
[2024-11-30 08:27] LABS: % Basophils 0.5 % (0-2); % Immature Granulocytes 0.7 % (0-0.5); % Lymphocytes 22.7 % (20.5-51.1); % Neutrophils 63.1 % (42.2-75.2); Absolute Eosinophils 0.2 10^3/uL (0-0.7); Absolute Immature Granulocytes 0.1 10^3/uL (0-0.05); Absolute Lymphocytes 1.7 10^3/uL (1.2-3.4); Absolute Monocytes 0.8 10^3/uL (0.1-0.6); Absolute Neutrophils 4.8 10^3/uL (1.4-6.5); Hematocrit 32.7 % (39.0-52.0); Hemoglobin 11.1 g/dL (13.0-18.0); Mean Corp Hgb Conc. 33.9 g/dL (33.0-37.0); Mean Corpuscular Hgb 36.4 pg (27.0-31.0); Mean Corpuscular Volume 107.2 fL (80.0-94.0); Mean Platelet Volume 10.5 fL (7.4-10.4); Platelet Count 89 10^3/uL (130-400); Red Blood Cell Count 3.05 10^6/uL (4.70-6.10); Red Cell Dist. Width 21.2 % (11.5-14.5); White Blood Cell Count 7.6 10^3/uL (4.8-10.8)
[2024-11-30 09:59] LABS: ALT (SGPT) 18 U/L (0-50); AST (SGOT) 21 U/L (17-59); Albumin 3.6 g/dl (3.5-5.0); Alkaline Phosphatase 96 U/L (38-126); Blood Urea Nitrogen 17 mg/dl (9-20); Calcium 8.5 mg/dl (8.4-10.2); Carbon Dioxide 25 mmol/L (22-30); Chloride 106 mmol/L (98-107); Glucose 105 mg/dl (70-99); Sodium 139 mmol/L (135-145); Total Bilirubin 1.2 mg/dl (0.2-1.3); Total Protein 5.9 g/dl (6.3-8.2); eGFR > 60.00
[2024-12-01 06:49] LABS: Beta-2-Microglobulin 3.1 mg/L (<=3.0)
[2024-12-02 11:45] LABS: Albumin 3.79 g/dL (3.75-5.01); Alpha 1 Globulin 0.31 g/dL (0.19-0.46); Alpha 2 Globulin 0.79 g/dL (0.48-1.05); Free Kappa Light Chains,Quant 31.08 mg/L (3.30-19.40); Free Lambda Light Chains,Quant <1.30 mg/L (5.71-26.30); IgA <2 mg/dL (68-408); IgG 629 mg/dL (768-1632); IgM 10 mg/dL (35-263); Immunofixation Electrophoresis IFE Done; Total Protein-Electrophoresis 6.1 g/dL (6.3-8.2)
[2024-12-07 08:19] LABS: % Basophils 0.3 % (0-2); % Eosinophils 2.4 % (0-6); % Immature Granulocytes 0.5 % (0-0.5); % Lymphocytes 31.6 % (20.5-51.1); % Monocytes 10.6 % (1.7-9.3); % Neutrophils 54.6 % (42.2-75.2); Absolute Eosinophils 0.2 10^3/uL (0-0.7); Absolute Monocytes 0.7 10^3/uL (0.1-0.6); Absolute Neutrophils 3.5 10^3/uL (1.4-6.5); Hematocrit 35.2 % (39.0-52.0); Hemoglobin 12.1 g/dL (13.0-18.0); Mean Corp Hgb Conc. 34.4 g/dL (33.0-37.0); Mean Corpuscular Hgb 37.3 pg (27.0-31.0); Mean Corpuscular Volume 108.6 fL (80.0-94.0); Mean Platelet Volume 10.3 fL (7.4-10.4); Platelet Count 110 10^3/uL (130-400); Red Blood Cell Count 3.24 10^6/uL (4.70-6.10); Red Cell Dist. Width 19.1 % (11.5-14.5); White Blood Cell Count 6.3 10^3/uL (4.8-10.8)
[2024-12-07 09:19] LABS: ALT (SGPT) 17 U/L (0-50); AST (SGOT) 20 U/L (17-59); Albumin 3.8 g/dl (3.5-5.0); Alkaline Phosphatase 97 U/L (38-126); Blood Urea Nitrogen 15 mg/dl (9-20); Calcium 8.8 mg/dl (8.4-10.2); Carbon Dioxide 29 mmol/L (22-30); Chloride 103 mmol/L (98-107); Glucose 123 mg/dl (70-99); Potassium 4.5 mmol/L (3.5-5.1); Sodium 137 mmol/L (135-145); Total Bilirubin 1.8 mg/dl (0.2-1.3); Total Protein 6.1 g/dl (6.3-8.2); eGFR > 60.00
== END 2024-12-11 23:59 | disposition home or self-care (01) ==
LOC: OID 07:56
PROVIDERS: ATTENDING PHYSICIAN Nurse Practitioner Adult Health; FAMILY PHYSICIAN Family Medicine
DX: C90.00 Multiple myeloma not having achieved remission (principal); D80.1 Nonfamilial hypogammaglobulinemia
CPT/HCPCS: 36415; 80053; 82232; 82784; 83521; 84155; 84165; 85025; 86334

== ENCOUNTER 2025-01-06 08:08 | Outpatient (RCR) | payer MEDICARE, OTHER, SELFPAY ==
[2024-12-14 08:18] LABS: % Basophils 0.9 % (0-2); % Eosinophils 6.7 % (0-6); % Immature Granulocytes 0.7 % (0-0.5); % Lymphocytes 37.8 % (20.5-51.1); % Monocytes 14.2 % (1.7-9.3); % Neutrophils 39.7 % (42.2-75.2); Absolute Eosinophils 0.3 10^3/uL (0-0.7); Absolute Lymphocytes 1.7 10^3/uL (1.2-3.4); Absolute Monocytes 0.6 10^3/uL (0.1-0.6); Absolute Neutrophils 1.8 10^3/uL (1.4-6.5); Hematocrit 33.8 % (39.0-52.0); Hemoglobin 11.4 g/dL (13.0-18.0); Mean Corp Hgb Conc. 33.7 g/dL (33.0-37.0); Mean Corpuscular Hgb 36.8 pg (27.0-31.0); Mean Platelet Volume 10.4 fL (7.4-10.4); Platelet Count 101 10^3/uL (130-400); Red Cell Dist. Width 16.9 % (11.5-14.5); White Blood Cell Count 4.5 10^3/uL (4.8-10.8)
[2024-12-14 09:20] LABS: ALT (SGPT) 17 U/L (0-50); AST (SGOT) 22 U/L (17-59); Albumin 3.5 g/dl (3.5-5.0); Alkaline Phosphatase 94 U/L (38-126); Blood Urea Nitrogen 14 mg/dl (9-20); Calcium 8.9 mg/dl (8.4-10.2); Carbon Dioxide 25 mmol/L (22-30); Chloride 103 mmol/L (98-107); Glucose 144 mg/dl (70-99); Potassium 4.6 mmol/L (3.5-5.1); Sodium 135 mmol/L (135-145); Total Bilirubin 1.7 mg/dl (0.2-1.3); Total Protein 5.7 g/dl (6.3-8.2); eGFR > 60.00
[2024-12-23 08:30] LABS: % Basophils 0.5 % (0-2); % Immature Granulocytes 0.5 % (0-0.5); % Monocytes 13.7 % (1.7-9.3); % Neutrophils 24.3 % (42.2-75.2); Absolute Eosinophils 0.5 10^3/uL (0-0.7); Absolute Monocytes 0.6 10^3/uL (0.1-0.6); Hemoglobin 11.4 g/dL (13.0-18.0); Mean Corp Hgb Conc. 33.5 g/dL (33.0-37.0); Mean Corpuscular Hgb 36.9 pg (27.0-31.0); Mean Platelet Volume 10.8 fL (7.4-10.4); Platelet Count 72 10^3/uL (130-400); Red Blood Cell Count 3.09 10^6/uL (4.70-6.10); Red Cell Dist. Width 14.8 % (11.5-14.5); White Blood Cell Count 4.1 10^3/uL (4.8-10.8)
[2024-12-23 10:44] LABS: ALT (SGPT) 17 U/L (0-50); AST (SGOT) 22 U/L (17-59); Albumin 3.7 g/dl (3.5-5.0); Alkaline Phosphatase 101 U/L (38-126); Blood Urea Nitrogen 20 mg/dl (9-20); Calcium 9.2 mg/dl (8.4-10.2); Carbon Dioxide 27 mmol/L (22-30); Chloride 102 mmol/L (98-107); Glucose 118 mg/dl (70-99); Magnesium 2.1 mg/dl (1.6-2.3); Phosphorus 3.3 mg/dl (2.5-4.5); Potassium 4.5 mmol/L (3.5-5.1); Sodium 135 mmol/L (135-145); Total Bilirubin 2.4 mg/dl (0.2-1.3); Total Protein 5.8 g/dl (6.3-8.2); Uric Acid 4.4 mg/dl (3.5-8.5); eGFR > 60.00
[2024-12-25 12:19] LABS: Direct Bilirubin 0.4 mg/dl (0.0-0.4); LDH 309 U/L (120-246)
[2024-12-29 00:53] LABS: Albumin 3.55 g/dL (3.75-5.01); Alpha 1 Globulin 0.35 g/dL (0.19-0.46); Alpha 2 Globulin 0.76 g/dL (0.48-1.05); Free Kappa Light Chains,Quant 75.04 mg/L (3.30-19.40); Free Lambda Light Chains,Quant <1.30 mg/L (5.71-26.30); IgA <2 mg/dL (68-408); IgG 443 mg/dL (768-1632); IgM <10 mg/dL (35-263); Immunofixation Electrophoresis IFE Done; Total Protein-Electrophoresis 5.7 g/dL (6.3-8.2)
[2024-12-30 08:52] LABS: Hematocrit 33.6 % (39.0-52.0); Mean Corp Hgb Conc. 32.7 g/dL (33.0-37.0); Mean Corpuscular Hgb 36.1 pg (27.0-31.0); Mean Corpuscular Volume 110.2 fL (80.0-94.0); Mean Platelet Volume 12.1 fL (7.4-10.4); Platelet Count 58 10^3/uL (130-400); Red Blood Cell Count 3.05 10^6/uL (4.70-6.10); Red Cell Dist. Width 14.9 % (11.5-14.5); White Blood Cell Count 2.2 10^3/uL (4.8-10.8)
[2024-12-30 09:17] LABS: Band Neutrophils 1 % (0-3); Eosinophils 17 % (0-6); Lymphocytes 59 % (20-51); Monocytes 19 % (2-9); Segmented Neutrophils 3 % (42-75)
[2024-12-30 09:18] LABS: Anisocytosis 1+; Macrocytosis 1+; Normal RBC Morphology No; Platelets Checked Yes
[2024-12-30 09:19] LABS: Total Cells Counted 100
[2024-12-30 09:32] LABS: ALT (SGPT) 16 U/L (0-50); AST (SGOT) 20 U/L (17-59); Albumin 4.1 g/dl (3.5-5.0); Alkaline Phosphatase 95 U/L (38-126); Blood Urea Nitrogen 18 mg/dl (9-20); Calcium 9.4 mg/dl (8.4-10.2); Carbon Dioxide 25 mmol/L (22-30); Chloride 99 mmol/L (98-107); Glucose 120 mg/dl (70-99); Potassium 4.6 mmol/L (3.5-5.1); Sodium 134 mmol/L (135-145); Total Bilirubin 2.3 mg/dl (0.2-1.3); Total Protein 6.1 g/dl (6.3-8.2); eGFR > 60.00
[2025-01-01 08:23] LABS: Beta-2-Microglobulin 3.6 mg/L (<=3.0)
[2025-01-06 08:38] LABS: % Basophils 0.5 % (0-2); % Eosinophils 0.2 % (0-6); % Immature Granulocytes 1.9 % (0-0.5); % Lymphocytes 26.9 % (20.5-51.1); % Monocytes 12.6 % (1.7-9.3); % Neutrophils 57.9 % (42.2-75.2); Absolute Immature Granulocytes 0.1 10^3/uL (0-0.05); Absolute Lymphocytes 1.7 10^3/uL (1.2-3.4); Absolute Monocytes 0.8 10^3/uL (0.1-0.6); Absolute Neutrophils 3.6 10^3/uL (1.4-6.5); Hematocrit 27.7 % (39.0-52.0); Hemoglobin 9.1 g/dL (13.0-18.0); Mean Corp Hgb Conc. 32.9 g/dL (33.0-37.0); Mean Corpuscular Volume 106.5 fL (80.0-94.0); Mean Platelet Volume 12.7 fL (7.4-10.4); Platelet Count 45 10^3/uL (130-400); Red Cell Dist. Width 15.9 % (11.5-14.5); White Blood Cell Count 6.2 10^3/uL (4.8-10.8)
[2025-01-06 10:10] LABS: ALT (SGPT) 24 U/L (0-50); AST (SGOT) 22 U/L (17-59); Albumin 3.1 g/dl (3.5-5.0); Alkaline Phosphatase 89 U/L (38-126); Blood Urea Nitrogen 14 mg/dl (9-20); Calcium 8.2 mg/dl (8.4-10.2); Carbon Dioxide 24 mmol/L (22-30); Chloride 103 mmol/L (98-107); Glucose 130 mg/dl (70-99); LDH 289 U/L (120-246); Sodium 135 mmol/L (135-145); Total Bilirubin 1.8 mg/dl (0.2-1.3); Total Protein 5.1 g/dl (6.3-8.2); eGFR > 60.00
[2025-01-08 16:07] LABS: Albumin 3.06 g/dL (3.75-5.01); Alpha 1 Globulin 0.42 g/dL (0.19-0.46); Alpha 2 Globulin 0.77 g/dL (0.48-1.05); Free Lambda Light Chains,Quant <1.35 mg/L (5.71-26.30); IgA <2 mg/dL (68-408); IgG 338 mg/dL (768-1632); IgM <10 mg/dL (35-263); Immunofixation Electrophoresis IFE Done; Total Protein-Electrophoresis 5.1 g/dL (6.3-8.2)
== END 2025-01-11 23:59 | disposition home or self-care (01) ==
LOC: OID 08:08
PROVIDERS: Internal Medicine Hematology & Oncology; ATTENDING PHYSICIAN Nurse Practitioner Adult Health; FAMILY PHYSICIAN Family Medicine
DX: C90.00 Multiple myeloma not having achieved remission (principal); D69.6 Thrombocytopenia, unspecified; C90.11 Plasma cell leukemia in remission; D80.1 Nonfamilial hypogammaglobulinemia
CPT/HCPCS: 36415; 80053; 82232; 82248; 82784; 83521; 83615; 83735; 84100; 84155; 84165; 84550; 85025; 86334

== ENCOUNTER 2025-01-18 14:22 | Outpatient (RCR) | payer MEDICARE, OTHER, SELFPAY ==
[2025-01-13 11:04] LABS: % Basophils 0.3 % (0-2); % Immature Granulocytes 0.8 % (0-0.5); % Lymphocytes 38.3 % (20.5-51.1); % Monocytes 13.5 % (1.7-9.3); % Neutrophils 47.1 % (42.2-75.2); Absolute Lymphocytes 1.4 10^3/uL (1.2-3.4); Absolute Monocytes 0.5 10^3/uL (0.1-0.6); Absolute Neutrophils 1.7 10^3/uL (1.4-6.5); Hemoglobin 8.3 g/dL (13.0-18.0); Mean Corp Hgb Conc. 31.9 g/dL (33.0-37.0); Mean Corpuscular Hgb 35.2 pg (27.0-31.0); Mean Corpuscular Volume 110.2 fL (80.0-94.0); Nucleated Red Blood Cells % 4.7 % (-); Platelet Count 17 10^3/uL (130-400); Red Blood Cell Count 2.36 10^6/uL (4.70-6.10); Red Cell Dist. Width 17.1 % (11.5-14.5); White Blood Cell Count 3.6 10^3/uL (4.8-10.8)
[2025-01-13 11:42] LABS: ALT (SGPT) 18 U/L (0-50); AST (SGOT) 22 U/L (17-59); Albumin 3.7 g/dl (3.5-5.0); Alkaline Phosphatase 92 U/L (38-126); Blood Urea Nitrogen 22 mg/dl (9-20); Calcium 9.4 mg/dl (8.4-10.2); Carbon Dioxide 23 mmol/L (22-30); Chloride 105 mmol/L (98-107); Glucose 121 mg/dl (70-99); Iron 199 ug/dl (49-181); Potassium 4.9 mmol/L (3.5-5.1); Sodium 139 mmol/L (135-145); Total Protein 5.6 g/dl (6.3-8.2); eGFR > 60.00
[2025-01-13 11:52] LABS: Percent Saturation 65 % (20-50); Total Iron Binding Capacity 302 ug/dl (261-462)
[2025-01-13 12:20] LABS: Folate 8.4 ng/ml (2.76-20); Vitamin B12 > 1000 pg/ml (239-931)
[2025-01-13 14:51] LABS: Reticulocyte Count 2.9 % (0.4-2.8)
[2025-01-14] VITALS (8 sets, daily range): BP systolic 106–142; BP diastolic 68–86
[2025-01-14 14:07] LABS: Haptoglobin 215 mg/dL (30-200)
[2025-01-18 16:40] LABS: Atypical Lymphocytes 1 %; Band Neutrophils 0 % (0-3); Hematocrit 26.2 % (39.0-52.0); Hemoglobin 8.6 g/dL (13.0-18.0); Lymphocytes 63 % (20-51); Mean Corp Hgb Conc. 32.8 g/dL (33.0-37.0); Mean Corpuscular Hgb 36.4 pg (27.0-31.0); Mean Platelet Volume 11.7 fL (7.4-10.4); Monocytes 29 % (2-9); Platelet Count 28 10^3/uL (130-400); Red Blood Cell Count 2.36 10^6/uL (4.70-6.10); Red Cell Dist. Width 21.4 % (11.5-14.5); Segmented Neutrophils 7 % (42-75); White Blood Cell Count 2.4 10^3/uL (4.8-10.8)
[2025-01-18 16:42] LABS: Absolute Neutrophils -Man Diff 0.1 10^3/uL (1.4-6.5); Normal RBC Morphology Yes; Platelets Checked Yes
[2025-01-18 16:43] LABS: Total Cells Counted 100
== END 2025-02-10 23:59 | disposition home or self-care (01) ==
LOC: OID 14:22
PROVIDERS: ATTENDING PHYSICIAN Nurse Practitioner Adult Health; FAMILY PHYSICIAN Family Medicine
DX: C90.00 Multiple myeloma not having achieved remission (principal); D69.6 Thrombocytopenia, unspecified; C90.11 Plasma cell leukemia in remission; D80.1 Nonfamilial hypogammaglobulinemia
CPT/HCPCS: 36415; 36430; 80053; 82607; 82728; 82746; 83010; 83540; 83550; 85025; 85045; 86850; 86900; 86901; 86920; P9016; P9073

== ENCOUNTER 2025-03-04 09:50 | Outpatient (RCR) | payer MEDICARE, OTHER, SELFPAY ==
[2025-02-18 10:03] LABS: Hematocrit 27.7 % (39.0-52.0); Hemoglobin 9.5 g/dL (13.0-18.0); Mean Corp Hgb Conc. 34.3 g/dL (33.0-37.0); Mean Corpuscular Hgb 30.6 pg (27.0-31.0); Mean Corpuscular Volume 89.4 fL (80.0-94.0); Mean Platelet Volume 11.5 fL (7.4-10.4); Platelet Count 23 10^3/uL (130-400); Red Cell Dist. Width 17.6 % (11.5-14.5)
[2025-02-18 10:06] LABS: % Basophils 1.8 % (0-2); % Lymphocytes 15.6 % (20.5-51.1); % Monocytes 13.2 % (1.7-9.3); % Neutrophils 60.4 % (42.2-75.2); Absolute Basophils 0.1 10^3/uL (0-0.2); Absolute Immature Granulocytes 0.5 10^3/uL (0-0.05); Absolute Lymphocytes 0.8 10^3/uL (1.2-3.4); Absolute Monocytes 0.7 10^3/uL (0.1-0.6); Nucleated Red Blood Cells % 1.2 % (-)
[2025-02-19 09:30] VITALS: BP 106/70
[2025-02-19 09:34] VITALS: BP 106/70
[2025-02-19 09:56] VITALS: BP 95/60
[2025-02-19 10:51] VITALS: BP 104/70
[2025-02-22 12:51] LABS: % Basophils 1.3 % (0-2); % Eosinophils 0.3 % (0-6); % Immature Granulocytes 9.1 % (0-0.5); % Lymphocytes 17.5 % (20.5-51.1); % Monocytes 16.8 % (1.7-9.3); Absolute Immature Granulocytes 0.3 10^3/uL (0-0.05); Absolute Lymphocytes 0.5 10^3/uL (1.2-3.4); Absolute Monocytes 0.5 10^3/uL (0.1-0.6); Absolute Neutrophils 1.6 10^3/uL (1.4-6.5); Hematocrit 26.3 % (39.0-52.0); Hemoglobin 8.6 g/dL (13.0-18.0); Mean Corp Hgb Conc. 32.7 g/dL (33.0-37.0); Mean Corpuscular Hgb 30.2 pg (27.0-31.0); Mean Corpuscular Volume 92.3 fL (80.0-94.0); Mean Platelet Volume 11.7 fL (7.4-10.4); Platelet Count 20 10^3/uL (130-400); Red Blood Cell Count 2.85 10^6/uL (4.70-6.10); Red Cell Dist. Width 16.7 % (11.5-14.5)
[2025-02-22 12:58] LABS: ALT (SGPT) 16 U/L (0-50); AST (SGOT) 18 U/L (17-59); Albumin 2.7 g/dl (3.5-5.0); Alkaline Phosphatase 120 U/L (38-126); Blood Urea Nitrogen 9 mg/dl (9-20); Calcium 8.3 mg/dl (8.4-10.2); Carbon Dioxide 28 mmol/L (22-30); Chloride 103 mmol/L (98-107); Glucose 101 mg/dl (70-99); Sodium 134 mmol/L (135-145); Total Bilirubin 1.1 mg/dl (0.2-1.3); Total Protein 4.6 g/dl (6.3-8.2); Uric Acid 2.5 mg/dl (3.5-8.5); eGFR > 60.00
[2025-02-23 09:20] VITALS: BP 92/61
[2025-02-23 09:44] VITALS: BP 92/61
[2025-02-23 10:05] VITALS: BP 96/55
[2025-02-23 11:04] VITALS: BP 98/53
[2025-02-25 13:18] LABS: Albumin 2.78 g/dL (3.75-5.01); Alpha 2 Globulin 0.73 g/dL (0.48-1.05); Free Kappa Light Chains,Quant 0.69 mg/L (3.30-19.40); Free Lambda Light Chains,Quant <1.35 mg/L (5.71-26.30); IgA 11 mg/dL (68-408); IgG 329 mg/dL (768-1632); IgM 27 mg/dL (35-263); Immunofixation Electrophoresis IFE Done; Total Protein-Electrophoresis 4.8 g/dL (6.3-8.2)
[2025-02-26] VITALS (8 sets, daily range): BP systolic 100–118; BP diastolic 56–71
[2025-03-01 15:32] LABS: ALT (SGPT) 14 U/L (0-50); AST (SGOT) 18 U/L (17-59); Albumin 3.3 g/dl (3.5-5.0); Alkaline Phosphatase 127 U/L (38-126); Blood Urea Nitrogen 12 mg/dl (9-20); Calcium 8.3 mg/dl (8.4-10.2); Carbon Dioxide 25 mmol/L (22-30); Chloride 105 mmol/L (98-107); Glucose 101 mg/dl (70-99); Potassium 4.9 mmol/L (3.5-5.1); Sodium 137 mmol/L (135-145); Total Bilirubin 1.4 mg/dl (0.2-1.3); Total Protein 5.3 g/dl (6.3-8.2); eGFR > 60.00
[2025-03-01 15:38] LABS: % Immature Granulocytes 2.1 % (0-0.5); % Lymphocytes 44.7 % (20.5-51.1); % Neutrophils 36.2 % (42.2-75.2); Absolute Basophils 0.1 10^3/uL (0-0.2); Absolute Eosinophils 0.1 10^3/uL (0-0.7); Absolute Immature Granulocytes 0.1 10^3/uL (0-0.05); Absolute Lymphocytes 2.2 10^3/uL (1.2-3.4); Absolute Monocytes 0.7 10^3/uL (0.1-0.6); Absolute Neutrophils 1.7 10^3/uL (1.4-6.5); Hematocrit 26.6 % (39.0-52.0); Hemoglobin 8.8 g/dL (13.0-18.0); Mean Corp Hgb Conc. 33.1 g/dL (33.0-37.0); Mean Corpuscular Hgb 30.4 pg (27.0-31.0); Mean Platelet Volume 12.5 fL (7.4-10.4); Nucleated Red Blood Cells % 1.7 % (-); Platelet Count 45 10^3/uL (130-400); Red Blood Cell Count 2.89 10^6/uL (4.70-6.10); Red Cell Dist. Width 18.5 % (11.5-14.5); White Blood Cell Count 4.8 10^3/uL (4.8-10.8)
[2025-03-04 10:23] LABS: % Basophils 1.1 % (0-2); % Eosinophils 1.2 % (0-6); % Immature Granulocytes 2.8 % (0-0.5); % Lymphocytes 50.4 % (20.5-51.1); % Monocytes 13.1 % (1.7-9.3); % Neutrophils 31.4 % (42.2-75.2); Absolute Basophils 0.1 10^3/uL (0-0.2); Absolute Eosinophils 0.1 10^3/uL (0-0.7); Absolute Immature Granulocytes 0.2 10^3/uL (0-0.05); Absolute Lymphocytes 3.2 10^3/uL (1.2-3.4); Absolute Monocytes 0.8 10^3/uL (0.1-0.6); Hematocrit 26.5 % (39.0-52.0); Hemoglobin 8.7 g/dL (13.0-18.0); Mean Corp Hgb Conc. 32.8 g/dL (33.0-37.0); Mean Corpuscular Hgb 30.1 pg (27.0-31.0); Mean Corpuscular Volume 91.7 fL (80.0-94.0); Mean Platelet Volume 11.3 fL (7.4-10.4); Platelet Count 85 10^3/uL (130-400); Red Blood Cell Count 2.89 10^6/uL (4.70-6.10); Red Cell Dist. Width 18.5 % (11.5-14.5); White Blood Cell Count 6.4 10^3/uL (4.8-10.8)
[2025-03-04 11:00] LABS: Nucleated Red Blood Cells % 5.5 % (-)
[2025-03-04 11:01] LABS: ALT (SGPT) 16 U/L (0-50); AST (SGOT) 20 U/L (17-59); Albumin 3.5 g/dl (3.5-5.0); Alkaline Phosphatase 121 U/L (38-126); Blood Urea Nitrogen 11 mg/dl (9-20); Calcium 8.6 mg/dl (8.4-10.2); Carbon Dioxide 25 mmol/L (22-30); Chloride 107 mmol/L (98-107); Glucose 149 mg/dl (70-99); Potassium 4.5 mmol/L (3.5-5.1); Sodium 137 mmol/L (135-145); Total Bilirubin 1.4 mg/dl (0.2-1.3); Total Protein 5.4 g/dl (6.3-8.2); eGFR > 60.00
[2025-03-09 11:55] LABS: % Basophils 0.5 % (0-2); % Eosinophils 0.9 % (0-6); % Immature Granulocytes 1.9 % (0-0.5); % Lymphocytes 43.6 % (20.5-51.1); % Monocytes 19.4 % (1.7-9.3); % Neutrophils 33.7 % (42.2-75.2); Absolute Eosinophils 0.1 10^3/uL (0-0.7); Absolute Immature Granulocytes 0.1 10^3/uL (0-0.05); Absolute Lymphocytes 2.5 10^3/uL (1.2-3.4); Absolute Monocytes 1.1 10^3/uL (0.1-0.6); Absolute Neutrophils 1.9 10^3/uL (1.4-6.5); Hematocrit 28.3 % (39.0-52.0); Hemoglobin 8.9 g/dL (13.0-18.0); Mean Corp Hgb Conc. 31.4 g/dL (33.0-37.0); Mean Corpuscular Volume 98.6 fL (80.0-94.0); Mean Platelet Volume 12.7 fL (7.4-10.4); Platelet Count 167 10^3/uL (130-400); Red Blood Cell Count 2.87 10^6/uL (4.70-6.10); Red Cell Dist. Width 24.8 % (11.5-14.5); White Blood Cell Count 5.7 10^3/uL (4.8-10.8)
[2025-03-09 12:03] LABS: ALT (SGPT) 14 U/L (0-50); AST (SGOT) 19 U/L (17-59); Albumin 3.6 g/dl (3.5-5.0); Alkaline Phosphatase 118 U/L (38-126); Blood Urea Nitrogen 15 mg/dl (9-20); Calcium 9.2 mg/dl (8.4-10.2); Carbon Dioxide 26 mmol/L (22-30); Chloride 106 mmol/L (98-107); Glucose 110 mg/dl (70-99); Iron 101 ug/dl (49-181); Potassium 4.8 mmol/L (3.5-5.1); Sodium 138 mmol/L (135-145); Total Bilirubin 1.4 mg/dl (0.2-1.3); Total Protein 5.7 g/dl (6.3-8.2); eGFR > 60.00
[2025-03-09 12:12] LABS: Percent Saturation 31 % (20-50); Total Iron Binding Capacity 318 ug/dl (261-462)
[2025-03-09 14:40] LABS: Nucleated Red Blood Cells % 14.4 % (-)
[2025-03-10 23:50] LABS: Beta-2-Microglobulin 3.3 mg/L (<=3.0)
[2025-03-12 02:41] LABS: Albumin 3.42 g/dL (3.75-5.01); Alpha 1 Globulin 0.41 g/dL (0.19-0.46); Alpha 2 Globulin 0.75 g/dL (0.48-1.05); Free Kappa Light Chains,Quant 0.71 mg/L (3.30-19.40); Free Lambda Light Chains,Quant <1.35 mg/L (5.71-26.30); IgA 2 mg/dL (68-408); IgG 285 mg/dL (768-1632); IgM 13 mg/dL (35-263); Immunofixation Electrophoresis IFE Done; Total Protein-Electrophoresis 5.5 g/dL (6.3-8.2)
== END 2025-03-13 23:59 | disposition home or self-care (01) ==
LOC: OID 09:50
PROVIDERS: Nurse Practitioner Primary Care; ATTENDING PHYSICIAN Nurse Practitioner Adult Health; FAMILY PHYSICIAN Family Medicine; OTHER PHYSICIAN Internal Medicine Hematology & Oncology
DX: C90.00 Multiple myeloma not having achieved remission (principal); D69.6 Thrombocytopenia, unspecified; C90.11 Plasma cell leukemia in remission; D80.1 Nonfamilial hypogammaglobulinemia
CPT/HCPCS: 36415; 36430; 80053; 82232; 82565; 82728; 82784; 83521; 83540; 83550; 84155; 84165; 84550; 85025; 86334; 86850; 86900; 86901; 86920; P9016; P9073

== ENCOUNTER 2025-03-30 09:33 | Outpatient (RCR) | payer MEDICARE, OTHER, SELFPAY ==
[2025-03-30 12:03] LABS: % Basophils 0.5 % (0-2); % Eosinophils 1.2 % (0-6); % Immature Granulocytes 0.8 % (0-0.5); % Lymphocytes 47.2 % (20.5-51.1); % Monocytes 13.4 % (1.7-9.3); % Neutrophils 36.9 % (42.2-75.2); Absolute Eosinophils 0.1 10^3/uL (0-0.7); Absolute Immature Granulocytes 0.1 10^3/uL (0-0.05); Absolute Lymphocytes 2.9 10^3/uL (1.2-3.4); Absolute Monocytes 0.8 10^3/uL (0.1-0.6); Absolute Neutrophils 2.2 10^3/uL (1.4-6.5); Hematocrit 29.5 % (39.0-52.0); Hemoglobin 9.5 g/dL (13.0-18.0); Mean Corp Hgb Conc. 32.2 g/dL (33.0-37.0); Mean Corpuscular Hgb 36.1 pg (27.0-31.0); Mean Corpuscular Volume 112.2 fL (80.0-94.0); Mean Platelet Volume 12.7 fL (7.4-10.4); Nucleated Red Blood Cells % 6.1 % (-); Platelet Count 123 10^3/uL (130-400); Red Blood Cell Count 2.63 10^6/uL (4.70-6.10); Red Cell Dist. Width 25.4 % (11.5-14.5); White Blood Cell Count 6.1 10^3/uL (4.8-10.8)
[2025-04-01 01:50] LABS: IgG 625 mg/dl (700-1600)
[2025-04-01 21:45] LABS: Albumin 3.17 g/dL (3.75-5.01); Alpha 1 Globulin 0.38 g/dL (0.19-0.46); Alpha 2 Globulin 0.66 g/dL (0.48-1.05); Free Kappa Light Chains,Quant 17.78 mg/L (3.30-19.40); Free Lambda Light Chains,Quant <1.35 mg/L (5.71-26.30); IgA <2 mg/dL (68-408); IgG 564 mg/dL (768-1632); IgM 12 mg/dL (35-263); Immunofixation Electrophoresis IFE Done; Total Protein-Electrophoresis 5.3 g/dL (6.3-8.2)
== END 2025-04-12 23:59 | disposition home or self-care (01) ==
LOC: OID 09:33
PROVIDERS: Nurse Practitioner Primary Care; ATTENDING PHYSICIAN Internal Medicine Hematology & Oncology; FAMILY PHYSICIAN Family Medicine; REFERRING PHYSICIAN Internal Medicine Hematology & Oncology
DX: C90.00 Multiple myeloma not having achieved remission (principal); D80.1 Nonfamilial hypogammaglobulinemia; R53.1 Weakness; D63.0 Anemia in neoplastic disease; D69.6 Thrombocytopenia, unspecified
CPT/HCPCS: 36415; 82784; 83521; 84155; 84165; 85025; 86334

== ENCOUNTER → 2025-03-31 09:54 | Outpatient (REF) | payer MEDICARE, OTHER, SELFPAY | LOC: SDSPAT 09:54 | PROVIDERS: ATTENDING PHYSICIAN Internal Medicine; FAMILY PHYSICIAN Nurse Practitioner Family; OTHER PHYSICIAN Internal Medicine | DX: I48.19 Other persistent atrial fibrillation (principal) | CPT/HCPCS: 93005 ==

== ENCOUNTER 2025-03-31 19:17 | Inpatient (IN) | payer MEDICARE, OTHER, SELFPAY ==
[2025-03-31] VITALS (13 sets, daily range): BP systolic 82–125; BP diastolic 62–94; BMI 31.4
[2025-03-31 15:44] LABS: % Basophils 0.4 % (0-2); % Eosinophils 0.4 % (0-6); % Immature Granulocytes 0.7 % (0-0.5); % Lymphocytes 49.3 % (20.5-51.1); % Monocytes 14.1 % (1.7-9.3); % Neutrophils 35.1 % (42.2-75.2); Absolute Lymphocytes 2.8 10^3/uL (1.2-3.4); Absolute Monocytes 0.8 10^3/uL (0.1-0.6); Hemoglobin 9.3 g/dL (13.0-18.0); Mean Corp Hgb Conc. 32.1 g/dL (33.0-37.0); Mean Corpuscular Hgb 35.9 pg (27.0-31.0); Mean Platelet Volume 13.3 fL (7.4-10.4); Nucleated Red Blood Cells % 5.7 % (-); Platelet Count 141 10^3/uL (130-400); Red Blood Cell Count 2.59 10^6/uL (4.70-6.10); White Blood Cell Count 5.6 10^3/uL (4.8-10.8)
[2025-03-31 15:49] LABS: ALT (SGPT) 11 U/L (0-50); AST (SGOT) 21 U/L (17-59); Albumin 3.4 g/dl (3.5-5.0); Alkaline Phosphatase 85 U/L (38-126); Blood Urea Nitrogen 14 mg/dl (9-20); Calcium 8.9 mg/dl (8.4-10.2); Carbon Dioxide 25 mmol/L (22-30); Chloride 107 mmol/L (98-107); Glucose 133 mg/dl (70-99); Potassium 4.9 mmol/L (3.5-5.1); Sodium 137 mmol/L (135-145); Total Bilirubin 1.9 mg/dl (0.2-1.3); Total Protein 5.5 g/dl (6.3-8.2); eGFR > 60.00
[2025-03-31 15:59] LABS: Troponin I < 0.012 ng/ml
[2025-03-31 16:04] LABS: Normal RBC Morphology No
[2025-03-31 16:05] LABS: Microcytosis 1+
[2025-03-31 16:06] LABS: Macrocytosis 3+
[2025-03-31 16:08] LABS: Howell Jolly Bodies 2+
[2025-03-31 16:09] LABS: Basophilic Stippling 1+
[2025-03-31 16:10] LABS: Anisocytosis 2+
[2025-03-31 16:11] LABS: Target Cells 1+
[2025-03-31 16:13] LABS: Polychromasia Slight
--- NOTE | 2025-03-31 17:36 | ED.GENMED ---
History of Present Illness
General
Chief Complaint: Heart Rate Problem
Source: patient and physician
Exam Limitations: none
Time Seen by Provider: 03/31/25 16:46
Nursing documentation reviewed up to this point in time: agreed with
History of Present Illness
History of Present Illness:
Note:
CHIEF COMPLAINT(S)
Shortness of breath on exertion.
HISTORY OF PRESENT ILLNESS
The patient is a 74-year-old male with a history of multiple myeloma and anticoagulation therapy with apixaban (Eliquis) for four years, which was temporarily discontinued one month ago. He presents with shortness of breath that occurs upon
exertion, noted for approximately one month. The patient was evaluated for cardioversion as an outpatient, but his orchardist recommended admission for persistent atrial fibrillation. The patient is uncertain about the timing of prior
echocardiograms. His treatment plan includes a chest X-ray and medication management to slow the heart rate. Admission for further evaluation and potentially an echocardiogram with cardioversion is anticipated.
ADDITIONAL HISTORY OBTAINED FROM SOURCES OTHER THAN THE PATIENT
Sent to the ED by cardiology for admission
SOCIAL HISTORY
The patient reports a history of smoking in the 1980s. He consumes alcohol occasionally and denies any illicit drug use.
PHYSICAL EXAM
Nursing notes reviewed and vital signs reviewed.
Physical Exam
General: no apparent distress, not acutely ill
Neck: supple. no meningeal signs. normal posterior pharynx
Heart: s1/s2 tachycardia, irregular rhythm. equal radial
pulses.
HEENT: Pupils equal round reactive to light, EOMI
Lungs: no acute respiratory distress. clear bilaterally
Abdomen: normal bowel sounds. not tender. no CVAT
Neuro: alert and oriented. no focal neurological deficits cranial nerves II through XII intact
Skin: no rash
Psychiatric: well kept. interactive and cooperative
Extremities: no edema. no calf tenderness. negative homans. good distal pulses
PLAN
Perform a chest X-ray and initiate a medication to control heart rate. Consultation with cardiology is planned to discuss the potential need for admission for echocardiography and cardioversion.
DIFFERENTIAL DIAGNOSIS
The Differential Diagnosis includes, in no particular order and is not limited to:
- Atrial fibrillation
- Heart failure
- Chronic obstructive pulmonary disease
- Pulmonary embolism
- Coronary artery disease
- Myocardial infarction
- Anemia
- Valvular heart disease
- Cardiac arrhythmia
- Constrictive pericarditis
CARE-UPDATE
03/31/25 - 17:36
Started diltiazem for rate control and admitted patient to the hospitalist service. Plan to check chest x-ray to rule out congestive heart failure. Considering transesophageal echocardiogram and cardioversion; however, patient is not a candidate for
immediate cardioversion due to recent cessation and resumption of Eliquis.
EKG
My independent EKG interpretation is:
- Heart rate: 136 bpm
- Rhythm: Atrial fibrillation with rapid ventricular response
- Notable interval: Incomplete right bundle branch block
- Abnormalities: ST abnormality
Disposition:
ASSESSMENT
Rapid atrial fibrillation.
MEDICATION RECONCILIATION
Diltiazem started for rate control.
MEDICAL DECISION MAKING
Chronic conditions affecting care: multiple myeloma, anticoagulation therapy with apixaban.
Discussion of care with cardiology, consideration for admission due to atrial fibrillation and need for possible echocardiography and cardioversion.
INDEPENDENT REVIEW OF LABS AND INTERPRETATION OF TESTS
My independent EKG interpretation is:
- Heart rate: 136 bpm
- Rhythm: Atrial fibrillation with rapid ventricular response
- Notable interval: Incomplete right bundle branch block
- Abnormalities: ST abnormality
PLAN
Perform a chest X-ray to rule out congestive heart failure.
PATHOLOGIES TO CONSIDER
- Pulmonary embolism
- Coronary artery disease
- Myocardial infarction
- Heart failure
Past History
Past History
ED Past Medical History: Arrthythmia (History of atrial fibrillation), Cancer (Multiple Myloma Leukemia, ), CHF, GERD, HTN, Hypercholesterolemia and Other (History of arthritis, SBO, PNA, Diverticulosis)
ED Past Surgical History: Appendectomy, Cardiac (Ablation) and Orthopedic (Surgery on left knee for a meniscal repair in 2001)
Social History
Tobacco: Former smoker
Alcohol: Daily (Beer 1)
Drug: None
Personal:
Living: with family
Employment: Retired
Family History
Family History: CAD
Phy Exam
Physical Exam
Physical Exam:
.
Course
Orders/Labs/Results
Orders:
Orders
03/31/25 Breakfast
Cholesterol Lowering
Cholesterol Lowering: Sodium, 2 Gram
03/31/25 14:51
ECG [Electrocardiogram (*1)] Urgent
Reason for Study: Atrial Fibrillation
EKG- Treatment ONCE
03/31/25 14:56
Cardiac Monitoring- Treatment ONCE
IV Insert/Care/Rem.- Treatment PRN
03/31/25 15:08
Complete Blood Count/With Diff Urgent
Comprehensive Metabolic Panel Urgent
NT-proBNP Urgent
Comment: ADD ON
Troponin I Urgent
03/31/25 17:13
Add On- LAB Urgent
Tests Added?: pro bnp
03/31/25 17:34
CR Chest Portable - 1 View Urgent
Comment:
Reason For Exam: short of breath
Reason Study Needs to be Portable: Patient Unstable
03/31/25 17:37
Diltiazem 125 mg/125 ml Nss [Cardizem] 125 mg in 125 ml IV NOW
Initial dose in mg/hr, then titrate:: 5
Titrate to keep:: Heart rate 80-100 bpm
Titrate by mg/hr:: 5 mg/hr
Frequency of titrations (minutes):: 15
Maximum dose in mg/hr:: 15
03/31/25 17:38
Diltiazem HCl [Cardizem] 5 mg IV NOW STA
03/31/25 18:03
Admit/Transfer Patient As Directed
Co-Sign Provider:
Level of Care: Inpatient admission
Assign to:: IVU
Physician / Group: michael
Diagnosis: atrial fib with RVR
Reason for Hospitalization: atrial fib with RVR
Expected length of stay greater than two midnights?: Yes
ELOS- Estimated Length of Stay in days: 3
I certify the patient meets the requirements for IP care: Yes
03/31/25 18:04
Code Status As Directed
Resuscitation Status: Full Code
PRN Pain Medication Management As Directed
May give lesser potent ordered pain med per pt: Yes
preference::
Protocol:: Medication orders for pain may be administered in a
manner that supports deferring to patient preference
when the pt is:
- Requesting an ordered lesser potent pain medication.
Least to most potent pain medications are defined
as: acetaminophen < NSAID < tramadol < opioids
(morphine, oxycodone, hydromorphone).
- Requesting a lesser dose of the same medication IF
ORDERED.
- Requesting a less intrusive route of administration
if both routes are prescribed by the provider (PO <
IV).
03/31/25 19:32
Acetaminophen [Tylenol] 650 mg PO Q4HPRN PRN
Bisacodyl [Dulcolax] 10 mg RECTAL A61SAAN PRN
Diltiazem 125 mg/125 ml Nss [Cardizem] 125 mg in 125 ml IV PER PROTOCOL
Currently infusing. Continue current dose and titrate:: Yes
Titrate to keep:: Heart rate 80-100 bpm
Titrate by mg/hr:: 5 mg/hr
Frequency of titrations (minutes):: 15
Maximum dose in mg/hr:: 15
Docusate W/Senna [Senokot-S] 1 tablet PO BIDPRN PRN
Polyethylene Glycol Powder [Miralax] 17 grams PO DAILYPRN PRN
03/31/25 19:32
CARDIOLOGY CONSULT Routine
Consulting Provider: Jason Hodges
Was physician already notified: Yes
Activity As Directed
Activity Level: As Tolerated
Vital Signs As Directed
Frequency: Per unit guidelines
03/31/25 20:00
Acyclovir [Zovirax] 800 mg PO BID
Apixaban [Eliquis] 5 mg PO BID
Metoprolol Xl [Toprol Xl] 50 mg PO BID
04/01/25 Breakfast
NPO
Allow oral meds: Yes
Allow clear liquids: No
NPO for procedure after (time): 04/01/2025 0000
Complete Blood Count/No Diff IN AM
04/01/25 08:00
Dapsone 100 mg PO DAILY
Levothyroxine [Synthroid] 125 mcg PO DAILY
04/02/25 06:00
Complete Blood Count/No Diff IN AM
04/03/25 06:00
Complete Blood Count/No Diff IN AM
04/04/25 06:00
Complete Blood Count/No Diff IN AM
Abnormal Lab Results
03/31/25
15:08
RBC 2.59 L 10^6/uL
(4.70-6.10)
Hgb 9.3 L g/dL
(13.0-18.0)
Hct 29.0 L %
(39.0-52.0)
MCV 112.0 H fL
(80.0-94.0)
MCH 35.9 H pg
(27.0-31.0)
MCHC 32.1 L g/dL
(33.0-37.0)
RDW 25.0 H %
(11.5-14.5)
MPV 13.3 H fL
(7.4-10.4)
Absolute Monos (auto) 0.8 H 10^3/uL
(0.1-0.6)
Immature Gran % 0.7 H %
(0-0.5)
Neutrophils % 35.1 L %
(42.2-75.2)
Monocytes % 14.1 H %
(1.7-9.3)
Glucose 133 H mg/dl
(70-99)
Total Bilirubin 1.9 H mg/dl
(0.2-1.3)
Total Protein 5.5 L g/dl
(6.3-8.2)
Albumin 3.4 L g/dl
(3.5-5.0)
03/31/25 15:08
03/31/25 15:08
Vital Signs
Initial and Last Documented VS:
Initial Vital Signs
Temp Pulse Resp BP Pulse Ox
98.2 F 94 18 120/71 95
03/31/25 14:51 03/31/25 14:51 03/31/25 14:51 03/31/25 14:51 03/31/25 14:51
Last Documented Vital Signs
Temp Pulse Resp BP Pulse Ox
98.2 F 111 25 112/79 96
03/31/25 14:51 03/31/25 18:00 03/31/25 18:00 03/31/25 18:00 03/31/25 18:00
*Radiology
Radiology exam reviewed: radiology read reviewed (Chest x-ray possible mild CHF versus bilateral suprahilar pneumonia)
*Pulse Oximetry
SaO2: 96
Oxygen Mode of Delivery: Room air
Patient hypoxic: no
*Critical Care Note
Total Time (30-74mins, 75-104mins- exclusive of procedures): 35
comment:
Critical care statement: A total of 35 minutes of critical care time was provided for this patient. This includes management of unstable vital signs, evaluation of the patient at bedside, reviewing the patient's pertinent medical records, discussion
with consultants, review of old EKGs and review of pertinent medical records. This time with separate from time utilized to perform the aforementioned documented procedures
ED Attending Note
-
Portions of this chart may have been created with voice recognition software.� Occasional wrong word or��sound alike� substitutions may have occurred due to the inherent limitations of voice recognition software.
Discharge Plan
Departure
Patient Disposition: Admit
Date of Disposition: 03/31/25
Time of Disposition: 17:39
Admit to: IVU
Presentation/result/management discussed w/ accepting MD/DO: Hospitalist
Patient with high blood pressure during this ER visit?: No
Condition: Fair
Discharge Problem:
Atrial fibrillation with rapid ventricular response, Multiple myeloma
Interventions
Interventions:
*Risk Screen - Suicide Last Done: 03/31/25 14:51
*General Assessment Last Done: 03/31/25 17:04
*Neglect/Abuse Screening Last Done: 03/31/25 14:51
*ED- Fall Risk Assessment Last Done: 03/31/25 17:04
*ED COVID-19 Vaccine History Last Done: 03/31/25 17:04
*Nursing Disposition Last Done: 03/31/25 19:24
ED- Cardiac Assessment Last Done: 03/31/25 17:12
ED- Pulmonary Assessment Last Done: 03/31/25 17:12
Discharge Date and Time
Discharge Date/Time: 03/31/25 19:24
--- NOTE | 2025-03-31 17:45 | HPS.HSE ---
Family Physician
-
Family Physician: NOT KNOW UNKNOWN - PT DOES
Chief Complaint
-
Short of breath
History of Present Illness
74-year-old male with a history of multiple myeloma, A-fib, hypertension, hypothyroidism presented to us with shortness of breath for past 1 month . Shortness of breath is worse with exertion . Patient feels lightheaded and dizzy when he is
getting up. Shortness of breath improves when he is sitting down and laying down. Patient denied any chest pain .denied any palpitation. Patient denied any headache, syncope .patient denied any cough, congestion. Patient denied any abdominal
pain, nausea, vomiting or diarrhea. Patient denied dysuria hematuria. Patient scheduled for cardioversion next Saturday.
Upon arrival he was noted in A-fib with RVR. Initiated on Cardizem drip. Admitted for further management
Medical History
Past Medical History
Past Medical History: Reports Other
Additional Past Medical History:
Hematuria
Chronic A-fib
Hypertension
Dyslipidemia
Leukemia
BPH
CVA
GI bleed
Multiple myeloma
CHF
Dilated aortic root
Hypertension
Incomplete right bundle branch block
Past Surgical History: Reports Other
Additional Past Surgical History:
Left knee surgery
Appendectomy
Stem cell transplant
Social History
Tobacco: Former Smoker
Alcohol: Occasional
Drug: None
Family History
Family History: Not pertinent
Allergies / Home Medications
Allergies reflects when Allergies were last updated in [facility].
Home Medications with original date entered in [facility]
Allergy/Medication List:
Allergies
Allergy/AdvReac Type Severity Reaction Status Date / Time
nickel Allergy Rash Verified 03/31/25 14:51
Home Medications
dapsone 100 mg tablet 100 mg PO DAILY 02/23/25
acyclovir 800 mg tablet 800 mg PO BID 03/26/25
apixaban 5 mg tablet (Eliquis) 5 mg PO BID 03/26/25
calcium 250 mg (as carbonate)-vitamin D3 3.125 mcg (125 unit) tablet (Oyster Shell Calcium-Vitamin D3) 2 tab PO DAILY 03/26/25
levothyroxine 125 mcg tablet 125 mcg PO DAILY 03/26/25
metoprolol succinate 50 mg tablet,extended release 24 hr (Toprol XL) 50 mg PO BID 03/31/25
Review of Systems
-
Constitutional: Reports No Symptoms
EENT: Reports No Symptoms
Respiratory: Reports Trouble Breathing
Cardiac: Reports No Symptoms
Abdomen/GI: Reports No Symptoms
: Reports No Symptoms
Musculoskeletal: Reports No Symptoms
Skin: Reports No Symptoms
Neurological: Reports No Symptoms
Endocrine: Reports No Symptoms
Hematologic/Lymphatic: Reports No Symptoms
Psych: Reports No Symptoms
Physical Exam
Vital Signs
Vital Signs
Temp Pulse Resp BP Pulse Ox
98.2 F 117 22 125/94 96
03/31/25 14:51 03/31/25 16:30 03/31/25 16:30 03/31/25 16:03 03/31/25 17:37
Physical Exam
General: Well Developed, Well Nourished and No Apparent Distress
HEENT: NormoCephalic, Moist mucous membranes and Atraumatic
Respiratory: Clear
Cardiac: Irregular Rhythm and Tachycardia; No Murmur or Rub
GI: Soft, Non Tender, Non Distended and Normal Bowel Sounds; No Organomegaly
Rectal: Deferred by Provider
Musculoskeletal: No Clubbing, No Cyanosis and No Edema
Skin: No Rash
Neuro: AO x 3 and Nonfocal/grossly intact
Psych: Calm
Laboratory Results
-
03/31/25 15:08
03/31/25 15:08
Laboratory Results
Total Bilirubin 1.9 mg/dl (0.2-1.3) H 06/18/25 15:08
AST 21 U/L (17-59) 03/31/25 15:08
ALT 11 U/L (0-50) 03/31/25 15:08
Alkaline Phosphatase 85 U/L (38-126) 03/31/25 15:08
Troponin I < 0.012 ng/ml 03/31/25 15:08
Data Reviewed
-
Lab Data: Labs Reviewed by me
Impression/Plan
-
# Rapid A-fib
- On Cardizem drip
- EKG with A-fib with RVR
- Eliquis continued
- Echo 122 11/2024 with impression of EF 55%
- Cardiology consulted
# Anemia of chronic disease
- Hemoglobin stable at 9.3
- No active bleeding
- Continue to monitor
#hypothyroidism--levothyroxine continued
#HLD-statin continued
#multiple myeloma/leukemia
-s/p stem cell transplant and Car-T
- Acyclovir continued
- Patient received chemo 2 months ago at [facility]
#DVT prophylaxis
- Eliquis
#CODE status--full code
[2025-03-31] MEDS: CARDIZEM 5 MG IV (17:48)
[2025-03-31] MEDS: CARDIZEM 125 IV (17:50)
--- NOTE | 2025-03-31 18:22 | W.PN.UPDATE ---
Update Note
Progress Note Update
This is an addendum to H&P written by Manan Steinberg on 03/31/2025. Patient seen and examined independently with DYE AND CHEMICAL COORDINATOR.
74-year-old male past medical history of multiple myeloma on chemotherapy, atrial fibrillation on Eliquis, CHF, hypertension, hyperlipidemia, hypothyroidism, BPH, CVA, GI bleeding, presenting with worsening shortness of breath for 1 month.
He arrived with heart rate of 130s. EKG showed A-fib.
Labs show chronic anemia hemoglobin 9.3.
Chest x-ray, cardiac BNP pending.
Patient with atrial fibrillation with RVR. Cardizem drip started. Likely needs cardioversion. N.p.o. past midnight. Cardiology consulted.
[2025-03-31 18:55] LABS: NT-proBNP 1790 pg/ml
[2025-03-31] MEDS: TOPROL XL 50 MG PO (19:53)
[2025-03-31] MEDS: ELIQUIS 5 MG PO (19:53)
[2025-03-31] MEDS: ZOVIRAX 800 MG PO (19:55)
--- NOTE | 2025-03-31 22:40 | PTCARENOTE ---
Received pt @ approx. 1935 from ED RN via stretcher. pt ambulated into room with assistance of RN. pt denied any SOB or lightheadedness/dizziness when walking from stretcher to bed. Tele monitor shows Afib with heart rate in the 115's. Cardizem gtt
infusing at 5mL/hr. pt oriented to room and informed to call rn staff before getting OOB. Call matos within reach.
Report given to KEVON Mahoney.
--- NOTE | 2025-03-31 23:33 | PTCARENOTE ---
Received pt @ 1709 from RN January. Supa3, VSS-- A-Fib on the monitor w/ HR 80s-90s. Cardizem gtt infusing at 5mL/hr through left arm. Discussed plan of care for evening/morning. Agrees to call care team before getting OOB, and understands being NPO @
midnight. Call matos within reach.
[2025-04-01] VITALS (12 sets, daily range): BP systolic 80–107; BP diastolic 59–77; BMI 30.7
--- NOTE | 2025-04-01 01:13 | PTCARENOTE ---
Pt had 20 bt run of [employer] @ 0102. Asymptomatic, Pt denies any palpitations or chest pressure. Only CBC was ordered for morning-- reached out to Amando Madsen NP, to add BMP and Mag with morning bloodwork.
[2025-04-01 03:37] LABS: Hemoglobin 8.5 g/dL (13.0-18.0); Mean Corp Hgb Conc. 31.5 g/dL (33.0-37.0); Mean Corpuscular Hgb 35.4 pg (27.0-31.0); Mean Corpuscular Volume 112.5 fL (80.0-94.0); Mean Platelet Volume 12.9 fL (7.4-10.4); Platelet Count 127 10^3/uL (130-400); Red Cell Dist. Width 24.5 % (11.5-14.5); White Blood Cell Count 4.3 10^3/uL (4.8-10.8)
[2025-04-01 03:55] LABS: Blood Urea Nitrogen 15 mg/dl (9-20); Carbon Dioxide 26 mmol/L (22-30); Chloride 107 mmol/L (98-107); Estimated Creatinine Clearance 84 ml/min; Glucose 112 mg/dl (70-99); Potassium 4.2 mmol/L (3.5-5.1); Sodium 136 mmol/L (135-145); eGFR > 60.00
[2025-04-01] MEDS: SYNTHROID 125 MCG PO (06:02)
--- NOTE | 2025-04-01 06:29 | PTCARENOTE ---
Pt had 40 bt run of [employer] @ 5794. Asymptomatic, Pt denies any palpitations or chest pressure. Magnesium (2.0), potassium (4.2), calcium (8.0). Informed Amando Madsen NP-- order placed for calcium supplement. Call matos within reach.
--- NOTE | 2025-04-01 07:08 | W.PN.UPDATE ---
Update Note
Progress Note Update
RN reported 20 beats of V-tach, asymptomatic, denies chest pain, palpitation, labs was ordered K 4.2 mag 2.0 Corrected calcium 8.1, ordered calcium carbonate with vitamin. EKG AM
[2025-04-01] MEDS: OSCAL 500 + D 500 MG PO (07:53)
--- NOTE | 2025-04-01 08:35 | PTCARENOTE ---
Resting in bed this morning, remains in AF with rate < 100. Cardizem gtt remains off due to inability to tolerate due to hypotension. NPO for possible CV. Patient is hopeful to have this done and be able to be discharged and attend his scheduled
injection tomorrow at the cancer center.
--- NOTE | 2025-04-01 08:52 | CON.CAR ---
Addendum entered and electronically signed by Raudel Petit MD 04/01/25 10:51:
I saw and examined the patient.
The WATER TENDER's note was reviewed and I agree with the note.
Comment: 74 y/o male (cardiology patient of Dr. Sun) with persistent AFIB on Eliquis, hx PVI 2016 (Dr. Simmons), iRBBB, hypertension, dyslipidemia, mild-moderate MR, and multiple myeloma who is here for evaluation of JI.
I am not sure that his JI can be 100% contributed to his AF. It is likely multifactorial given his anemia, multiple myeloma, CA treatment, AF, etc.
Discussed with Dr Simmons:
We will add amio 200 mg daily to help with rate control
Increase metop to 75 mg bid
CMP next week.
He likely can be discharged later this afternoon to make CA treatment tomorrow.
Original Note:
Consultation
Consultation Request
Date/Time Consultation Requested: 03/31/251931
Date/Time Consultation Performed: 04/01/25 0853
Requesting Provider: Shayy Steinberg NP
Performing Provider: Sharon LUNA for Dr. Petit
Reason for Consultation: AFIB with RVR
Medical History
-
Chief Complaint: JI
History of Present Illness:
74 y/o male (cardiology patient of Dr. Sun) with persistent AFIB on Eliquis, hx PVI 2016 (Dr. Simmons), iRBBB, hypertension, dyslipidemia, mild-moderate MR, and multiple myeloma who is here for evaluation of JI. It has been progressively worsening
for the past month. In the ER, he was seen to be in AFIB with RVR. He was briefly on a diltiazem drip, which was stopped since BP was on low end. He is feeling well at the time of my assessment.
Past Medical History
Past Medical History: Arrhythmias, HTN, Hypercholesterolemia and Valvular Disease (mild - moderate MR)
Social History
Tobacco: Former Smoker
Family History
Family History: Early CAD
Allergies / Home Medications
Allergy/AdvReac Type Severity Reaction Status Date / Time
nickel Allergy Rash Verified 03/31/25 14:51
�Medication �Instructions �Recorded �Confirmed �Type
dapsone 100 mg tablet 100 mg PO DAILY 02/23/25 03/31/25 History
acyclovir 800 mg tablet 800 mg PO BID 03/26/25 03/31/25 History
apixaban 5 mg tablet (Eliquis) 5 mg PO BID 03/26/25 03/31/25 History
calcium 250 mg (as 2 tab PO DAILY 03/26/25 03/31/25 History
carbonate)-vitamin D3 3.125 mcg
(125 unit) tablet (Oyster Shell
Calcium-Vitamin D3)
levothyroxine 125 mcg tablet 125 mcg PO DAILY 03/26/25 03/31/25 History
metoprolol succinate 50 mg 50 mg PO BID 03/31/25 03/31/25 History
tablet,extended release 24 hr
(Toprol XL)
Review of Systems
-
History Source: Patient
All other systems: Negative unless noted
Respiratory: Trouble Breathing
Physical Exam
Vital Signs
Temp Pulse Resp BP Pulse Ox
97.6 F 100 18 102/66 94
04/01/25 07:27 04/01/25 07:33 04/01/25 07:27 04/01/25 07:33 04/01/25 07:29
Lab Results
04/01/25 03:00
04/01/25 03:00
Troponin I < 0.012 ng/ml 03/31/25 15:08
Gfv-P-Bzkthbwkuxx Pept 1790 pg/ml 03/31/25 15:08
Physical Exam
General: Well Developed, Well Nourished and No Apparent Distress
HEENT: Normocephalic and Anicteric
Respiratory: Clear and Non Labored Respirations
Cardiac: Irregular Rhythm
Musculoskeletal: Edema (trace)
Skin: Warm and Dry
Neuro: AO x 3
Psych: Calm
Impression / Plan
-
AFIB, persistent:
-rates mildly elevated. He is off diltiazem drip since 11PM per nursing (due to BP). He is feeling fine and has been walking without symptoms.
-cannot cardiovert today without ENRIQUE since he was temporarily off Eliquis and tomorrow would be the fulls 4 weeks back on Eliquis. He told me he cannot stay until tomorrow since he has a cancer treatment where he needs to be.
-will increase metoprolol to 75 mg PO BID. If well-tolerated, BP stable, and feeling well, he can go home with that change and plan for CV as OP next week as planned.
-of note, there was a report of NSVT, but looks like AFIB with aberrancy to my review. Also has intermittent RBBB.
-he is seeing Dr. Simmons in May to discuss repeat ablation
Multiple Myeloma:
-continue to follow with OP team
HTN:
-BP on low side
-monitor with adjustment in medications
Data:
Echo 11/04/24: Normal biventricular size and systolic function without regional wall motion abnormality. Estimated LVEF 55%. Brenda EPIQ left ventricular global longitudinal strain is -20.1 %. Mild/moderate mitral regurgitation. Mild/moderate
tricuspid regurgitation. Mildly dilated aortic root. Sinus of Valsalva measures 4.2 cm, sinotubular junction measures 3.3 cm, ascending aorta measures 4.0 cm.
Data Reviewed
-
EKG: Tracing Personally Visualized and interpreted (AFIB 95 BPM)
Radiology: Report Reviewed by me (CXR: No acute disease of the chest)
Medical Tests (Nuc Med, Echo etc): Report Reviewed by me (echo 11/04/24 as noted)
Labs: Labs Reviewed by me
[2025-04-01] MEDS: DAPSONE 100 MG PO (09:04)
[2025-04-01] MEDS: ELIQUIS 5 MG PO (09:04)
[2025-04-01] MEDS: TOPROL XL 50 MG PO (09:05)
[2025-04-01] MEDS: ZOVIRAX 800 MG PO (09:07)
[2025-04-01] MEDS: FLUSH (NSS) 1 FLUSH IV (09:08)
[2025-04-01] MEDS: TOPROL XL 25 MG PO (10:30)
--- NOTE | 2025-04-01 10:35 | W.PN.UPDATE ---
Update Note
Progress Note Update
Met with Mr. Dueñas at the bedside. I was called by Dr. Bryan to evaluate for recent onset atrial fibrillation. He is dyspneic with ambulation. I do have a outpatient appointment with him in May. It does not appear that this is expected
enough for the patient which he mentioned.
Prior ablation with me pulmonary and isolation in 2016 for longstanding persistent atrial fibrillation with 1 cardioversion performed in 2021 which was successful and he had been maintained on metoprolol XL 50 mg twice daily. He has had advanced
myeloma status post stem cell transplant, CAR-T cell therapy, and is currently on experimental chemotherapeutic's with blood dyscrasias including anemia and mild thrombocytopenia.
He is currently in rapid atrial fibrillation 90 to 110 bpm with reportedly normal ejection fraction although I will review his records.
I discussed with his primary cardiology team as well as the patient as I will do my best to expedite his office visit and ablation although I am certainly comfortable with any of our artificial glass eye maker including Dr. Hodges, Dr. Ugalde, and "Kayla"Maude performing his procedure if they have a more expedited schedule. I told the patient in detail that I thought it would be reasonable to perform cardioversion next week and I will be seeing him in May after about 4 weeks to assess his
rhythm which I do believe is a reasonable time and tempo to see in the office and then perform his ablation. Also with his experimental chemotherapy it would be reasonable to observe his CBC and creatinine for 1 to 2 months before putting him in a
committed situation for 3 months of oral anticoagulation. I did explain this to the patient although he did still seem and communicate that he was dissatisfied with an May visit. I did mention that I will try to move him up if I have a
cancellation and certainly offered a second opinion with any my colleagues.
I did discuss with the primary team that we will start amiodarone 200 mg daily and follow his liver function and perform cardioversion next week with outpatient follow-up in May as scheduled and I am happy to evaluate him and perform his
procedure if he so chooses. I took time to answer all questions and discussed the procedure and brought detail.
[2025-04-01] MEDS: PACERONE 200 MG PO (11:03)
--- NOTE | 2025-04-01 12:11 | PTCARENOTE ---
Patient is sitting oob in the chair, eating lunch, remains in AF, HR 108. Medicated with amiodarone PO as ordered at 1100.
--- NOTE | 2025-04-01 12:23 | W.DS.TRANS ---
DC Summary - Aquarist
-
Discharge Instructions:
Sleep Apnea Risk Intermediate
Discharge Diagnosis/Procedures Atrial fibrillation with rapid ventricular
response
Diet Regular
Instructions:
Stand-Alone Forms:
Changes to Home Medications: Yes
Discharge Medications:
DC Medications w/original date entered in [facility]
dapsone 100 mg tablet 100 mg PO DAILY 02/23/25
acyclovir 800 mg tablet 800 mg PO BID 03/26/25
apixaban 5 mg tablet (Eliquis) 5 mg PO BID 03/26/25
calcium 250 mg (as carbonate)-vitamin D3 3.125 mcg (125 unit) tablet (Oyster Shell Calcium-Vitamin D3) 2 tab PO DAILY 03/26/25
levothyroxine 125 mcg tablet 125 mcg PO DAILY 03/26/25
amiodarone 200 mg tablet 200 mg PO DAILY #30 tabs 04/01/25
metoprolol succinate 50 mg tablet,extended release 24 hr (Toprol XL) 75 mg (1.5 x 50 mg) PO BID #100 tabs 04/01/25
Home Medication Changes
Toprol increased to 75 mg twice daily.
Amiodarone 200 mg daily initiate
Pending Results: No
--- NOTE | 2025-04-01 14:03 | PTCARENOTE ---
Patient is ok for discharge home, will have CV next Saturday, patient seen by Dr. Simmons about a future ablation. Remains in AF but rate controlled, without sob. The patient's is in room 402, patient discharged and transported to her room
where his son will meet him and take him home.
--- NOTE | 2025-04-01 16:39 | CM ---
pt prev indep, lives with his in a 1 story home with 1 step to enter. no dc plannin gneeds noted. plan is for dc to home today.
== END 2025-04-01 13:00 | disposition home or self-care (01) | DRG 309 ==
LOC: IVU 19:17
PROVIDERS: Nurse Practitioner Gerontology; Registered Nurse; ADMITTING PHYSICIAN Hospitalist; ATTENDING PHYSICIAN Internal Medicine; EMERGENCY PHYSICIAN Emergency Medicine; FAMILY PHYSICIAN Family Medicine; OTHER PHYSICIAN Internal Medicine Cardiovascular Disease
DX: I48.19 Other persistent atrial fibrillation (principal); C90.00 Multiple myeloma not having achieved remission; C95.90 Leukemia, unspecified not having achieved remission; Z94.84 Stem cells transplant status; Z87.891 Personal history of nicotine dependence; Z79.01 Long term (current) use of anticoagulants; D63.8 Anemia in other chronic diseases classified elsewhere; E03.9 Hypothyroidism, unspecified; Z92.21 Personal history of antineoplastic chemotherapy
CPT/HCPCS: 36415; 71045; 80048; 80053; 82784; 83521; 83735; 83880; 84155; 84165; 84484; 85025; 85027; 86334; 87070; 93005; 96374; 96376; 99291

== ENCOUNTER 2025-04-06 09:44 | Outpatient (RCR) | payer MEDICARE, OTHER, SELFPAY ==
[2025-04-06 10:48] LABS: % Basophils 0.5 % (0-2); % Eosinophils 0.2 % (0-6); % Immature Granulocytes 1.6 % (0-0.5); % Lymphocytes 51.2 % (20.5-51.1); % Monocytes 13.7 % (1.7-9.3); % Neutrophils 32.8 % (42.2-75.2); Absolute Immature Granulocytes 0.1 10^3/uL (0-0.05); Absolute Lymphocytes 2.2 10^3/uL (1.2-3.4); Absolute Monocytes 0.6 10^3/uL (0.1-0.6); Absolute Neutrophils 1.4 10^3/uL (1.4-6.5); Hematocrit 33.8 % (39.0-52.0); Mean Corp Hgb Conc. 32.5 g/dL (33.0-37.0); Mean Corpuscular Hgb 36.2 pg (27.0-31.0); Mean Corpuscular Volume 111.2 fL (80.0-94.0); Nucleated Red Blood Cells % 10.7 % (-); Platelet Count 105 10^3/uL (130-400); Red Blood Cell Count 3.04 10^6/uL (4.70-6.10); Red Cell Dist. Width 23.3 % (11.5-14.5); White Blood Cell Count 4.3 10^3/uL (4.8-10.8)
[2025-04-06 11:01] LABS: ALT (SGPT) 12 U/L (0-50); AST (SGOT) 28 U/L (17-59); Albumin 3.2 g/dl (3.5-5.0); Alkaline Phosphatase 73 U/L (38-126); Blood Urea Nitrogen 25 mg/dl (9-20); Calcium 8.4 mg/dl (8.4-10.2); Carbon Dioxide 24 mmol/L (22-30); Chloride 104 mmol/L (98-107); Glucose 117 mg/dl (70-99); Potassium 4.5 mmol/L (3.5-5.1); Sodium 134 mmol/L (135-145); Total Bilirubin 1.3 mg/dl (0.2-1.3); Total Protein 5.3 g/dl (6.3-8.2); eGFR 41.26
[2025-04-08 15:14] LABS: ALT (SGPT) 12 U/L (0-50); AST (SGOT) 28 U/L (17-59); Albumin 2.9 g/dl (3.5-5.0); Alkaline Phosphatase 62 U/L (38-126); Blood Urea Nitrogen 34 mg/dl (9-20); Carbon Dioxide 21 mmol/L (22-30); Chloride 104 mmol/L (98-107); Glucose 109 mg/dl (70-99); Potassium 4.3 mmol/L (3.5-5.1); Sodium 131 mmol/L (135-145); Total Bilirubin 1.1 mg/dl (0.2-1.3); Total Protein 4.9 g/dl (6.3-8.2); eGFR 28.71
== END 2025-04-12 23:59 | disposition home or self-care (01) ==
LOC: OID 09:44
PROVIDERS: ATTENDING PHYSICIAN Internal Medicine Hematology & Oncology; FAMILY PHYSICIAN Family Medicine; OTHER PHYSICIAN Nurse Practitioner Primary Care
DX: C90.00 Multiple myeloma not having achieved remission (principal); D80.1 Nonfamilial hypogammaglobulinemia; Z51.81 Encounter for therapeutic drug level monitoring; R53.1 Weakness; C90.11 Plasma cell leukemia in remission; D69.6 Thrombocytopenia, unspecified
CPT/HCPCS: 36415; 80053; 85025

== ENCOUNTER 2025-04-07 09:29 | Day surgery (SDC) | payer MEDICARE, OTHER, SELFPAY ==
[2025-03-31 10:15] VITALS: BMI 31.8
== END 2025-04-07 11:28 | disposition home or self-care (01) ==
LOC: CATH 09:29
PROVIDERS: ATTENDING PHYSICIAN Internal Medicine; FAMILY PHYSICIAN Family Medicine; OTHER PHYSICIAN Internal Medicine
DX: I48.19 Other persistent atrial fibrillation (principal); C90.00 Multiple myeloma not having achieved remission; E03.9 Hypothyroidism, unspecified; E78.5 Hyperlipidemia, unspecified; I10 Essential (primary) hypertension; I45.10 Unspecified right bundle-branch block; I49.1 Atrial premature depolarization; Z79.01 Long term (current) use of anticoagulants; Z79.890 Hormone replacement therapy; Z79.899 Other long term (current) drug therapy; Z86.73 Personal history of transient ischemic attack (TIA), and cerebral infarction without residual deficits; Z87.891 Personal history of nicotine dependence; Z90.49 Acquired absence of other specified parts of digestive tract; R91.1 Solitary pulmonary nodule; D64.9 Anemia, unspecified
CPT/HCPCS: 92960; 93005

== ENCOUNTER 2025-04-08 15:47 | Emergency (ER) | payer MEDICARE, OTHER, SELFPAY ==
[2025-04-08] VITALS (8 sets, daily range): BP systolic 88–112; BP diastolic 60–72; BMI 34.3
--- NOTE | 2025-04-08 18:13 | ED.GENMED ---
History of Present Illness
General
Chief Complaint: Abdominal Symptoms
Source: patient
Exam Limitations: none
Time Seen by Provider: 04/08/25 15:58
History of Present Illness
History of Present Illness:
74-year-old male presents complaining of abdominal distention and decreased urine output worsening over the past several days. He has known history of multiple myeloma. His oncologist has been following his kidney functions over the past several
days and was sent in today after outpatient labs demonstrated an elevated creatinine. He notes a sensation to urinate but can only go several drops. He notes abdominal distention but denies shortness of breath or fever. He is due for his next
infusion for his treatment for his multiple Aloma tomorrow at [facility]. No other complaints at this time
Past History
Past History
ED Past Medical History: Arrthythmia (History of atrial fibrillation), Cancer (Multiple Myloma Leukemia, ), CHF, GERD, HTN, Hypercholesterolemia and Other (History of arthritis, SBO, PNA, Diverticulosis)
ED Past Surgical History: Appendectomy, Cardiac (Ablation) and Orthopedic (Surgery on left knee for a meniscal repair in 2001)
Social History
Tobacco: Former smoker
Alcohol: Daily (Beer 1)
Drug: None
Personal:
Living: with family
Employment: Retired
Family History
Family History: CAD
Phy Exam
Physical Exam
Physical Exam:
General: Well-appearing male no acute respiratory distress
HEENT: Normocephalic atraumatic
Heart: Regular rate and rhythm no murmurs
Lungs: Clear no wheeze
Abdomen is distended and firm but not tender no guarding or rebound.
Extremities: No cyanosis
Course
Orders/Labs/Results
Orders:
Orders
04/08/25 16:06
Bladder Scan- Treatment ONCE
04/08/25 16:47
CT Abd/pel Without Iv Or Oral Urgent
Comment:
Reason For Exam: distention, pain, difficutly urinating
Vital Signs
Initial and Last Documented VS:
Initial Vital Signs
Temp Pulse Resp BP Pulse Ox
98 F 87 24 88/60 94
04/08/25 15:50 04/08/25 15:50 04/08/25 15:50 04/08/25 15:50 04/08/25 15:50
Last Documented Vital Signs
Temp Pulse Resp BP Pulse Ox
98 F 87 23 100/67 91
04/08/25 15:50 04/08/25 17:45 04/08/25 17:45 04/08/25 17:43 04/08/25 18:16
MDM/Problems Addressed
Differential Diagnosis Includes:
Patient with difficulty voiding with distended abdomen history of multiple myeloma. Differential could include outlet obstruction versus kidney failure versus ascites
Kidney function today showed a creatinine of 2.4 whereas 5 days ago was 0.9. We initially suspected urinary retention. Catheter was placed however there is minimal of urine in the bladder. This prompted a CT scan of the abdomen which shows a
large amount of ascites throughout the abdomen. Discussed findings with patient and family. They prefer to go to [facility] given the acute kidney failure and his care is down there. Will place call
*Pulse Oximetry
SaO2: 91
Oxygen Mode of Delivery: Room air
Patient hypoxic: no
*Critical Care Note
Total Time (30-74mins, 75-104mins- exclusive of procedures): Not Applicable
Update Note
Update Note:
Results were explained to the patient and his son. Per patient preference they wanted to end up at [facility] as that is where his treating services are. I did offer to contact them to transfer him. I did explain the process that
he could take some time to transfer and wait for bed availability. They understood this. They are initially okay with the transfer. While waiting for [place] transfer to get back to me family notified me that they would rather be discharged from
this hospital. They want to drive themselves down the [facility]. I explained that they may have to start over again and wait in the emergency room. They were okay with this. I explained to the family that this is not the typical
path of transfer. They understood this. They still wanted to leave. Jeter catheter was discontinued as he is not making urine. IV was discontinued. All labs are printed out for the patient and disc was made of the CT scan.
ED Attending Note
-
Portions of this chart may have been created with voice recognition software.� Occasional wrong word or��sound alike� substitutions may have occurred due to the inherent limitations of voice recognition software.
Discharge Plan
Departure
Patient Disposition: Home (Routine Discharge)
Date of Disposition: 04/08/25
Time of Disposition: 18:36
Patient with high blood pressure during this ER visit?: No
Discharge Problem:
Acute kidney failure
Prescriptions:
No Action
dapsone 100 mg Tablet
100 mg PO DAILY
Patient Comments:
04/08/2025, pt. unsure if this is a morning or evening med.
Eliquis 5 mg Tablet
5 mg PO BID
acyclovir 800 mg Tablet
800 mg PO BID
levothyroxine 125 mcg Tablet
125 mcg PO DAILY
calcium carbonate-vitamin D3 [Oyster Shell Calcium-Vit D3] 250 mg-3.125 mcg (125 unit) Tablet
2 tab PO DAILY
metoprolol succinate [Toprol XL] 50 mg tablet extended release 24 hr
100 mg PO DAILY
amiodarone 200 mg Tablet
200 mg PO DAILY
Patient Comments:
04/08/2025, pt. is unsure if they are taking this med. or not; ecw records from 04/02/2025 and pharmacy records indicate that pt. has this med. on their list.
metoprolol succinate 50 mg Tablet Extended Release 24 Hr
50 mg PO DAILY@1900
Xgeva 120 mg/1.7 mL (70 mg/mL) Solution
0 mg SC Q4W
Patient Comments:
04/08/2025, pt. gets this injection through [facility]; was not able to confirm the dose at time of interview.
Referrals:
Vasu Tejada MD [Family Provider, Family Practice]
Activity Restrictions/Additional Instructions:
As discussed, we recommend transferring you. You chose to drive yourself to another hospital. Please return here for worsening symptoms.
Interventions
Interventions:
*Risk Screen - Suicide Last Done: 04/08/25 15:50
*General Assessment Last Done: 04/08/25 15:50
*Neglect/Abuse Screening Last Done: 04/08/25 15:50
*ED- Fall Risk Assessment Last Done: 04/08/25 15:50
*ED COVID-19 Vaccine History Last Done: 04/08/25 15:50
SW-Gdcwxa-Icfbdinuib Assessment Last Done: 04/08/25 16:47
Discharge Date and Time
Print Language: TURKMEN
--- NOTE | 2025-04-08 18:26 | PHANOTE ---
04/08/2025, pt. not sure if they are taking Amiodarone 200 mg daily or not; ecw records from 04/02/2025 and pharmacy fill data include this med.; could not confirm Xgeva injection w/ [place] at time of interview.
== END 2025-04-08 19:31 | disposition home or self-care (01) ==
LOC: EMR 15:47
PROVIDERS: EMERGENCY PHYSICIAN Student in an Organized Health Care Education/Training Program; FAMILY PHYSICIAN Family Medicine
DX: N17.9 Acute kidney failure, unspecified (principal); C90.00 Multiple myeloma not having achieved remission; E78.00 Pure hypercholesterolemia, unspecified; I11.0 Hypertensive heart disease with heart failure; I50.9 Heart failure, unspecified; I48.91 Unspecified atrial fibrillation; R18.8 Other ascites; Z87.891 Personal history of nicotine dependence; Z90.49 Acquired absence of other specified parts of digestive tract
CPT/HCPCS: 99284; 74176

== ENCOUNTER 2025-04-17 23:26 | Emergency (ER) | payer MEDICARE, OTHER, SELFPAY ==
[2025-04-17 23:32] VITALS: BP 95/46
[2025-04-17 23:34] VITALS: BP 95/46; BP 96/47; BMI 32.6
[2025-04-18] VITALS: BP 83/55
[2025-04-18 01:00] VITALS: BP 83/50
--- NOTE | 2025-04-18 01:00 | EDRN ---
Patient's blood pressure is low, however has been low and patient is on hospice, will continue to monitor and keep patient comfortable.
--- NOTE | 2025-04-18 02:00 | EDRN ---
Stayed in with patient at bedside helping Dr. Armijo drain patient's abdomen. 1200cc is what drained, patient resting comfortably with family at bedside.
[2025-04-18 04:00] VITALS: BP 81/43
--- NOTE | 2025-04-18 04:00 | EDRN ---
Transport for patient was set up at this time, family to go home to get things ready for patient to go home, patient is sleeping at this time and will continue to monitor.
--- NOTE | 2025-04-18 05:42 | EDRN ---
Transport here for patient, called son at home to inform him and that transport is here for patient and he will be heading home shortly.
--- NOTE | 2025-04-18 08:21 | ED.GENMED ---
History of Present Illness
General
Chief Complaint: Blood Pressure Problem
Source: patient, spouse and family
Exam Limitations: clinical condition
Time Seen by Provider: 04/18/25 01:02
Nursing documentation reviewed up to this point in time: agreed with
History of Present Illness
History of Present Illness:
74-year-old male with history as noted significant for end-stage multiple myeloma currently on hospice care. He was recently admitted at [facility] and discharged home on hospice. He was receiving paracentesis for symptomatic
treatment of abdominal discomfort from ascites. He just had paracentesis done on and had 8 L removed according to his family. He was having increased abdominal discomfort and distention tonight. Family gave him morphine but ultimately
decided to call EMS to bring to the hospital hoping that he can get a therapeutic paracentesis again to help make him more comfortable. Unfortunately patient has been having cognitive issues and cannot significantly participate in history other
than to say he is having abdominal discomfort. Patient's family does not wish for any testing or additional medications beyond fluids. Patient's hospice nurse is Chanda ([phone]).
Past History
Past History
ED Past Medical History: Arrthythmia (History of atrial fibrillation), Cancer (Multiple Myloma Leukemia, ), CHF, GERD, HTN, Hypercholesterolemia and Other (History of arthritis, SBO, PNA, Diverticulosis)
ED Past Surgical History: Appendectomy, Cardiac (Ablation) and Orthopedic (Surgery on left knee for a meniscal repair in 2001)
Social History
Tobacco: Former smoker
Alcohol: Daily (Beer 1)
Drug: None
Personal:
Living: with family
Employment: Retired
Family History
Family History: CAD
Review of Systems
Review of Systems
Unable to obtain full review of systems at this time due to: other (Clinical condition)
All Other Systems: Not applicable
ABD/GI: Reports abdominal pain
Phy Exam
Physical Exam
Physical Exam:
General: Sleeping but arousable, oriented x 2, appears chronically ill
Head: Normocephalic, atraumatic
Eyes: Conjunctiva normal
Throat: Airway intact
Neck: Trachea midline, supple without meningismus
Lungs: Clear to auscultation bilaterally, no wheezing, rales, rhonchi
Heart: Regular rate
Abd: Soft, distended with positive fluid wave, minimally tender, no peritoneal signs
Skin: no rash
Extremities: Warm and well-perfused
Scores
Heart Failure Risk
Heart Failure Risk Score: Not Applicable
Heart Score for Chest Pain Patients
STEMI patient?: Not applicable
Withdrawal Assessment of Alcohol
Withdrawal Assessment Completed?: Not applicable
Course
Vital Signs
Initial and Last Documented VS:
Initial Vital Signs
BP
95/46
04/17/25 23:32
Last Documented Vital Signs
Temp Pulse Resp BP Pulse Ox
36.4 C 92 14 81/43 96
04/17/25 23:34 04/18/25 05:15 04/18/25 00:15 04/18/25 04:00 04/18/25 00:45
Procedures
Other
Indication for procedure:: abdominal ascites
Procedure completed by: Ga Armijo MD
Consent form signed: Yes
Additional Procedure:
Paracentesis
Using ultrasound, large pocket of fluid localized in left lower quadrant at the area marked
Abdomen prepped and draped in usual sterile fashion
Area anesthetized using 1% lidocaine
18-gauge needle advanced all continuously drawing back until peritoneal fluid returned
Guidewire advanced through the needle and needle removed
A small tommie was made to the skin and catheter inserted over guidewire
Good return of fluid from catheter�initially removed fluid using large 60 cc syringe subsequently catheter attached to vacuum container using good sterile technique
Total of approximately 1.5 liters of dark yellow fluid removed
Catheter then removed and clean dressing applied
Patient tolerated procedure well
MDM/Problems Addressed
Differential Diagnosis Includes:
Symptomatic ascites
MDM/Problems Addressed:
74-year-old male who is currently on hospice for end-stage multiple myeloma presents to the ER with his family for symptomatic ascites. His family is hoping to have a therapeutic paracentesis to help with his symptoms as this seemed to improve his
discomfort greatly during his most recent hospitalization. I had a long discussion with the patient's hospice nurse Chanda as well patient and family�decision made to proceed with therapeutic paracentesis here but will hold off on any further
testing including blood work or fluid analysis as procedures solely for comfort. Will hold off on any IV fluids or albumin after the procedure in keeping with family's wishes.
Paracentesis performed as documented in procedure note. Will discharge patient back home on hospice.
Chronic conditions affecting care:
Multiple myeloma
*Pulse Oximetry
SaO2: 96
Nasal Cannula flow liters per minute: 5
Patient hypoxic: no (96%)
*Critical Care Note
Total Time (30-74mins, 75-104mins- exclusive of procedures): Not Applicable
Data Reviewed
Source: patient, records, spouse and family
Further Testing Considered But Not Given:
Considered fluid cell count, Gram stain, culture, CBC, CMP, abdominal CT
Patient Management
Discussion with other providers: Other (Discussed with the patient's hospice nurse)
ED Attending Note
-
Portions of this chart may have been created with voice recognition software.� Occasional wrong word or��sound alike� substitutions may have occurred due to the inherent limitations of voice recognition software.
Discharge Plan
Departure
Patient Disposition: Home with Hospice
Date of Disposition: 04/18/25
Time of Disposition: 02:07
Discharge Problem:
Abdominal ascites
Instructions: Abdominal paracentesis
Prescriptions:
No Action
dapsone 100 mg Tablet
100 mg PO DAILY
Patient Comments:
04/08/2025, pt. unsure if this is a morning or evening med.
Eliquis 5 mg Tablet
5 mg PO BID
acyclovir 800 mg Tablet
800 mg PO BID
levothyroxine 125 mcg Tablet
125 mcg PO DAILY
calcium carbonate-vitamin D3 [Oyster Shell Calcium-Vit D3] 250 mg-3.125 mcg (125 unit) Tablet
2 tab PO DAILY
metoprolol succinate [Toprol XL] 50 mg tablet extended release 24 hr
100 mg PO DAILY
amiodarone 200 mg Tablet
200 mg PO DAILY
Patient Comments:
04/08/2025, pt. is unsure if they are taking this med. or not; ecw records from 04/02/2025 and pharmacy records indicate that pt. has this med. on their list.
metoprolol succinate 50 mg Tablet Extended Release 24 Hr
50 mg PO DAILY@1900
Xgeva 120 mg/1.7 mL (70 mg/mL) Solution
0 mg SC Q4W
Patient Comments:
04/08/2025, pt. gets this injection through [facility]; was not able to confirm the dose at time of interview.
Referrals:
UNKNOWN - PT DOES,NOT KNOW [Family Provider]
Interventions
Interventions:
*Risk Screen - Suicide Last Done: 04/17/25 23:34
*General Assessment Last Done: 04/17/25 23:34
*Neglect/Abuse Screening Last Done: 04/17/25 23:34
*ED- Fall Risk Assessment Last Done: 04/17/25 23:34
*ED COVID-19 Vaccine History Last Done: 04/17/25 23:34
*Nursing Disposition Last Done: 04/18/25 05:42
ED- Cardiac Assessment Last Done: 04/18/25 00:00
ED- Neurological Assessment Last Done: 04/18/25 00:00
ED- Pulmonary Assessment Last Done: 04/18/25 00:00
Discharge Date and Time
Discharge Date/Time: 04/18/25 05:42
Print Language: BULGARIAN
== END 2025-04-18 05:42 | disposition hospice, home (50) ==
LOC: EMR 23:26
PROVIDERS: EMERGENCY PHYSICIAN Emergency Medicine
DX: R18.8 Other ascites (principal); C90.00 Multiple myeloma not having achieved remission; E78.00 Pure hypercholesterolemia, unspecified; I11.0 Hypertensive heart disease with heart failure; I50.9 Heart failure, unspecified; I48.91 Unspecified atrial fibrillation; Z87.891 Personal history of nicotine dependence; Z51.5 Encounter for palliative care
CPT/HCPCS: 49083; 99285